=== PATIENT | female | born 1965 | race Two or more races ===

== ENCOUNTER 2017-03-13 14:56 | Emergency (ER) | payer OTHER ==
[2017-03-13 15:22] VITALS: BP 132/64; PULSE 83; TEMP 98.1; BMI 27.2
--- NOTE | 2017-03-13 15:28 | PDOC ---
History of Present Illness - General Chief Complaint: Psychiatric Stated Complaint: PANIC ATTACK Time Seen by Provider: 03/13/17 15:27 History Source: Patient Exam Limitations: No Limitations Past History - Past Medical History Allergies/Adverse Reactions: Allergies Allergy/AdvReac Type Severity Reaction Status Date / Time Fish Containing Products Allergy Rash Verified 03/13/17 15:19 No Known Drug Allergies Allergy Verified 03/13/17 15:19 Home Medications: Ambulatory Orders Aripiprazole [Abilify -] 5 mg PO HS 12/29/15 Diphenhydramine [Benadryl -] 50 mg PO HS 12/29/15 Divalproex Sodium [Depakote ER] 500 mg PO HS 12/29/15 Gabapentin [Neurontin -] 300 mg PO HS 12/29/15 Lidocaine 4% Topical [Xylocaine 4% Topical] 1 applic MM BID 12/29/15 Tramadol HCl 50 mg PO Q8H PRN #9 tablet MDD 4 04/16/16 Albuterol Sulfate Inhaler - [Ventolin HFA Inhaler -] 1 puff IH QID PRN #1 inhaler 04/29/16 Levofloxacin [Levaquin -] 500 mg PO DAILY #7 tablet 04/29/16 Montelukast Na [Singulair -] 10 mg PO HS #30 tablet 04/29/16 Valacyclovir HCl [Valtrex -] 500 mg PO BID #20 tablet 04/29/16 Aripiprazole [Abilify -] 5 mg PO HS #30 tablet 07/23/16 Divalproex [Depakote -] 500 mg PO HS #30 tablet.ec 07/23/16 Gabapentin [Neurontin -] 100 mg PO TID #90 capsule 07/23/16 Albuterol Sulfate Inhaler - [Ventolin HFA Inhaler -] 2 puff IH Q4H PRN #1 inhaler 07/25/16 Gabapentin [Neurontin -] 100 mg PO TID #90 capsule 07/25/16 Montelukast Na [Singulair -] 10 mg PO HS #30 tablet 07/25/16 Ranitidine [Zantac -] 150 mg PO BID #30 tablet 07/25/16 Guaifenesin [Robitussin] 10 ml PO QID PRN #100 ml 03/13/17 Anemia: No Asthma: Yes (albuterol) Cancer: No Cardiac Disorders: No CVA: No COPD: No CHF: No Dementia: No Diabetes: No GI Disorders: Yes (GERD) Disorders: No HTN: No Hypercholesterolemia: No Kidney Stones: No Liver Disease: No Psychiatric Problems: Yes (bipolar, manic) Suicide Attempt (Hx): Yes (many years ago CUT WRIST ) Seizures: No Thyroid Disease: Yes (never went for treatment) - Surgical History Abdominal Surgery: Yes (gastric sleeve 2013) Appendectomy: No Cardiac Surgery: No Cholecystectomy: No Gastric Stapling: Yes (bariatric sx) Lung Surgery: No Neurologic Surgery: No Orthopedic Surgery: Yes (right carpal tunnel 2011; right elbow 2011) - Reproductive History PID: No - Psycho/Social/Smoking Cessation Hx Anxiety: No Suicidal Ideation: No Smoking History: Current every day smoker Have you smoked in the past 12 months: Yes Number of Cigarettes Smoked Daily: 20 If you are a former smoker, when did you quit?: 2009 Cigars Per Day: 0 Information on smoking cessation initiated: No 'Breaking Loose' booklet given: 07/22/16 Hx Alcohol Use: No Drug/Substance Use Hx: No Substance Use Type: Alcohol, Cocaine, Opiates Hx Substance Use Treatment: Yes *Physical Exam - Vital Signs Last Vital Signs Temp Pulse Resp BP Pulse Ox 98.1 F 83 22 132/64 96 03/13/17 15:19 03/13/17 15:19 03/13/17 15:19 03/13/17 15:19 03/13/17 15:19 *DC/Admit/Observation/Transfer Diagnosis at time of Disposition: Anxiety, Cough in adult - Discharge Dispostion Disposition: HOME Condition at time of disposition: Stable - Prescriptions Prescriptions: Guaifenesin [Robitussin] 10 ml PO QID PRN #100 ml PRN Reason: Cough - Patient Instructions Printed Discharge Instructions: DI for Cough -- Adult, DI for Drug Abuse and Drug Addiction Additional Instructions: Please utilizes all resources in the community to avoid drug use and alcohol use. If you feel unsafe, severely depressed, or extremely violent please return to the ED or your nearest police department.
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
== END 2017-03-13 17:11 | disposition home or self-care (01) ==
LOC: JERFT 14:56
DX: F41.9 Anxiety disorder, unspecified (principal); R05 Cough; K21.9 Gastro-esophageal reflux disease without esophagitis; J45.909 Unspecified asthma, uncomplicated; F31.9 Bipolar disorder, unspecified; E07.9 Disorder of thyroid, unspecified; Z98.84 Bariatric surgery status; Z91.013 Allergy to seafood; Z91.5 Personal history of self-harm
CPT/HCPCS: 99281-25

== ENCOUNTER 2018-05-16 21:50 | Emergency (ER) | payer OTHER ==
[2018-05-16 21:53] VITALS: BP 160/96; PULSE 92; TEMP 98.4; BMI 29.2
--- NOTE | 2018-05-16 22:04 | PDOC ---
History of Present Illness - General Chief Complaint: Ear Problem Stated Complaint: FOREIGN BODY IN EAR Time Seen by Provider: 05/16/18 22:02 - History of Present Illness Initial Comments: 22-year-old female with a past medical history significant for bipolar and depression. She is on multiple medications presents to the emergency room for evaluation of bilateral ear pain 2 hours. She states she feels bugs in her ear. 05/16/18 22:02 Past History - Past Medical History Allergies/Adverse Reactions: Allergies Allergy/AdvReac Type Severity Reaction Status Date / Time Fish Containing Products Allergy Rash Verified 05/16/18 21:53 No Known Drug Allergies Allergy Verified 05/16/18 21:53 Home Medications: Ambulatory Orders Aripiprazole [Abilify -] 5 mg PO HS 12/29/15 Divalproex Sodium [Depakote ER] 500 mg PO HS 12/29/15 Gabapentin [Neurontin -] 300 mg PO HS 12/29/15 Valacyclovir HCl [Valtrex -] 500 mg PO BID #20 tablet 04/29/16 Aripiprazole [Abilify -] 5 mg PO HS #30 tablet 07/23/16 Divalproex [Depakote -] 500 mg PO HS #30 tablet.ec 07/23/16 Amoxicillin - [Amoxicillin 875mg Tablet -] 875 mg PO BID #20 tablet 05/16/18 Anemia: No Asthma: Yes (albuterol) Cancer: No Cardiac Disorders: No CVA: No COPD: No CHF: No Dementia: No Diabetes: No GI Disorders: Yes (GERD) Disorders: No HTN: No Hypercholesterolemia: No Kidney Stones: No Liver Disease: No Psychiatric Problems: Yes (bipolar, manic) Seizures: No Thyroid Disease: Yes (never went for treatment) - Surgical History Abdominal Surgery: Yes (gastric sleeve 2013) Appendectomy: No Cardiac Surgery: No Cholecystectomy: No Gastric Stapling: Yes (bariatric sx) Lung Surgery: No Neurologic Surgery: No Orthopedic Surgery: Yes (right carpal tunnel 2011; right elbow 2011) - Reproductive History PID: No - Suicide/Smoking/Psychosocial Hx Smoking History: Former smoker Have you smoked in the past 12 months: Yes Number of Cigarettes Smoked Daily: 20 If you are a former smoker, when did you quit?: 2009 Cigars Per Day: 0 Information on smoking cessation initiated: No 'Breaking Loose' booklet given: 07/22/16 Hx Alcohol Use: No Drug/Substance Use Hx: No Substance Use Type: Alcohol, Cocaine, Opiates Hx Substance Use Treatment: Yes Review of Systems - Review of Systems HEENTM: Yes: See HPI, Ear Pain All Other Systems: Reviewed and Negative *Physical Exam - Vital Signs Last Vital Signs Temp Pulse Resp BP Pulse Ox 98.4 F 92 H 18 160/96 99 05/16/18 21:51 05/16/18 21:51 05/16/18 21:51 05/16/18 21:51 05/16/18 21:51 - Physical Exam Comments: HEAD: NC/AT EYES: Conjuntiva clear Ears: Canals are clear without any of evidence of foreign body tympanic membranes bilaterally are erythemic and bulging NOSE: No d/c THROAT: Moist mucous membrances, oral pharanx clear, uvula midline NECK: Supple without adenopathy CARDIAC: S1 S2 LUNGS: CTA Full and Equal breath sounds ABDOMEN: Soft NT ND MS: Full ROM in all joints without edema NEUROLOGIC: No gross sensory or motor deficits, NVID SKIN: Normal color and temperature no lesions or rashes 05/16/18 22:03 Medical Decision Making - Medical Decision Making No foreign body possibly otitis media I will treat her with amoxicillin 05/16/18 22:03 *DC/Admit/Observation/Transfer Diagnosis at time of Disposition: Otitis media - Discharge Dispostion Disposition: HOME Condition at time of disposition: Stable Decision to Admit order: No - Prescriptions Prescriptions: Amoxicillin - [Amoxicillin 875mg Tablet -] 875 mg PO BID #20 tablet - Referrals Referrals: Iain Hawley MD [Staff Physician] - - Patient Instructions Printed Discharge Instructions: Middle Ear Infection Additional Instructions: Please take the antibiotics as directed he did take Tylenol and Motrin as needed for pain as directed return to the emergency room should symptoms worsen or go unresolved. Please follow-up with ENT in one to 2 days. - Post Discharge Activity
== END 2018-05-16 22:13 | disposition home or self-care (01) ==
LOC: JERFT 21:50
DX: H66.93 Otitis media, unspecified, bilateral (principal); J45.909 Unspecified asthma, uncomplicated; K21.9 Gastro-esophageal reflux disease without esophagitis; F31.9 Bipolar disorder, unspecified; Z98.84 Bariatric surgery status
CPT/HCPCS: 99281-25

== ENCOUNTER 2018-06-18 14:52 | Inpatient (IN) | payer OTHER ==
[2018-06-18 16:55] VITALS: BMI 27.4
--- NOTE | 2018-06-18 17:59 | HP ---
CIWA Score Nausea/Vomitin Muscle Tremors: None Anxiety: 4-Mod. Anxious/Guarded Agitation: 2 Paroxysmal Sweats: No Perspiration Orientation: 0-Oriented Tacttile Disturbances: 0-None Auditory Disturbances: 2-Mild Harshness/Frighten Visual Disturbances: 2-Mild Sensitivity Headache: 3-Moderate CIWA-Ar Total Score: 18 - Admission Criteria [facility]ASAS Guidelines: Admission for Medically Managed Detox: Requires at least one of the followin. CIWA greater than 12 2. Seizures within the past 24 hours 3. Delirium tremens within the past 24 hours 4. Hallucinations within the past 24 hours 5. Acute intervention needed for co occurring medical disorder 6. Acute intervention needed for co occurring psychiatric disorder 7. Severe withdrawal that cannot be handled at a lower level of care (continued vomiting, continued diarrhea, abnormal vital signs) requiring intravenous medication and/or fluids 8. Admission ROS [facility] Allergies/Adverse Reactions: Allergies Allergy/AdvReac Type Severity Reaction Status Date / Time Fish Containing Products Allergy Rash Verified 05/16/18 21:53 No Known Drug Allergies Allergy Verified 05/16/18 21:53 History of Present Illness: patient here requesting detox from ETOH use , reports 1 pint/day x 2 months , s/p relapse , prior sobriety x 5 years ,first age of use 13 , reports severe anxiety if not drinking, symptoms as above , + h/o seizure latest claims today before she drank a beer , reports drinking in the mornings to stop tremors , + blackouts , + falls , most recently in her home in the kitchen 1 week ago , denies injuries . utox + bernardo, + bup Boom 0.000 crack cocaine : 3 gr /day x 2 months relapse heroin : [facility] ) tobacco : 1 ppd since age 10 , requesting nrt w/ gum PMHX : asthma ( hospitalized , denies intubation , has nebulizer at home ) , CTS , sciatica, chronic LBP , left knee , old HZV on back chronic neuropathy , eczema , pshx : bariatric surgery , CHARMAINE & BSO 2/2 fibroids 4 years ago psych : manic , bipolar d/o meds : see list . prior visit at this facility " years ago " 3 children ages 34,30, 31 A & W Exam Limitations: No Limitations - Ebola screening Have you traveled outside of the country in the last 21 days: No Have you had contact with anyone from an Ebola affected area: No Have you been sick,other than usual withdrawal symptoms: No - Review of Systems Constitutional: See HPI EENT: reports: Other (glasses) Respiratory: reports: No Symptoms reported Cardiac: reports: No Symptoms Reported GI: reports: Nausea, Vomiting : reports: No Symptoms Reported Musculoskeletal: reports: Back Pain, Joint Pain, Muscle Pain Integumentary: reports: See HPI Neuro: reports: Headache Endocrine: reports: No Symptoms Reported Psychiatric: reports: Orientated x3, Agitated, Anxious Patient History - Patient Medical History Hx Anemia: No Hx Asthma: Yes Hx Chronic Obstructive Pulmonary Disease (COPD): No Hx Cancer: No Hx Cardiac Disorders: No Hx Congestive Heart Failure: No Hx Hypertension: No Hx Hypercholesterolemia: No Hx Pacemaker: No HX Cerebrovascular Accident: No Hx Seizures: No Hx Dementia: No Hx Diabetes: No Hx Gastrointestinal Disorders: Yes (GERD) Hx Liver Disease: No Hx Genitourinary Disorders: No Hx Sexually Transmitted Disorders: Yes (HERPES) Hx Renal Disease (ESRD): No Hx Thyroid Disease: Yes (never went for treatment) Hx Human Immunodeficiency Virus (HIV): No Hx Hepatitis C: Yes (treated years ago with interferon) Hx Depression: Yes (hospitalized 4 months ago [facility]) Hx Suicide Attempt: Yes (05/28 OD WITH PRESCRIBED PILLS) Hx Bipolar Disorder: Yes Hx Schizophrenia: No - Patient Surgical History Past Surgical History: Yes Hx Neurologic Surgery: No Hx Cataract Extraction: No Hx Cardiac Surgery: No Hx Lung Surgery: No Hx Breast Surgery: No Hx Breast Biopsy: Yes (RIGHT lumpectomy 2007) Hx Abdominal Surgery: Yes (gastric sleeve 2013) Hx Appendectomy: No Hx Cholecystectomy: No Hx Genitourinary Surgery: Yes (ovarians removed 2013) Hx Section: No (ectopic ) Hx Orthopedic Surgery: Yes (right carpal tunnel 2011; right elbow 2011) Hx Hysterectomy: Yes (2013) Other Surgical History: LUMBAR AND CERVICAL EPIDURAL Anesthesia Reaction: No - PPD History Date: 04/29/16 - Reproductive History Last Menstrual Period: 04/24/13 - Smoking Cessation Smoking history: Former smoker Have you smoked in the past 12 months: Yes Aproximately how many cigarettes per day: 20 If you are a former smoker, when did you quit?: 2009 Cigars Per Day: 0 Hx Chewing Tobacco Use: No Initiated information on smoking cessation: No - Substances Abused Alcohol Route: Oral Frequency: Daily Amount used: 1 PINT VODKA Age of first use: 13 Date of Last Use: 06/18/18 Cocaine Route: Smoking Frequency: Daily Amount used: 3 GRAMS Age of first use: 26 Date of Last Use: 06/18/18 Buprenorphine Route: Oral Frequency: Daily Amount used: 24MG Age of first use: 50 Date of Last Use: 06/17/18 Family Disease History - Family Disease History Family Disease History: Diabetes: Sister (psych problems), CA: Mother ( breast cancer), Other: Father (, alcohol), Sister Admission Physical Exam [facility] - Vital Signs Vital Signs: Vital Signs - 24 hr 06/18/18 16:51 Temperature 97.6 F Pulse Rate 93 H Respiratory 18 Rate Blood Pressure 96/65 - Physical General Appearance: Yes: Disheveled, Moderate Distress, Tremorous, Anxious HEENTM: Yes: EOMI, Hearing grossly Normal, Normal ENT Inspection, Other (many missing teeth , poor dentition) Respiratory: Yes: Chest Non-Tender, Lungs Clear, Normal Breath Sounds Neck: Yes: No masses,lesions,Nodules, Trachea in good position Breast: Yes: Breast Exam Deferred Cardiology: Yes: Regular Rhythm, Regular Rate, Tachycardia Abdominal: Yes: Normal Bowel Sounds, Non Tender Genitourinary: Yes: Within Normal Limits Back: Yes: Normal Inspection Musculoskeletal: Yes: Back pain, Joint Stiffness Extremities: Yes: Normal Capillary Refill, Normal Inspection Neurological: Yes: Fully Oriented, Motor Strength 5/5 Integumentary: Yes: Within Normal Limits - Diagnostic (1) Opioid dependence on agonist therapy Current Visit: Yes Status: Chronic (2) Alcohol dependence with uncomplicated withdrawal Current Visit: No Status: Acute (3) Asthma Current Visit: No Status: Chronic Qualifiers: Asthma severity: mild intermittent Asthma complication type: with status asthmaticus (4) Cocaine dependence Current Visit: No Status: Chronic Qualifiers: Substance use status: uncomplicated Qualified Code(s): F14.20 - Cocaine dependence, uncomplicated (5) Nicotine dependence Current Visit: No Status: Chronic Qualifiers: Nicotine product type: cigarettes Substance use status: uncomplicated Qualified Code(s): F17.210 - Nicotine dependence, cigarettes, uncomplicated [facility] Breath Alcohol Content Breath Alcohol Content: 0 Urine Pregancy Test - Result Urine Test Results: Negative- NO Line Present Urine Drug Screen - Results Urine Drug Screen Results: BERNARDO-Cocaine, BUP-Suboxone
[2018-06-18] MEDS ORDERED: MAGNESIUM CITRATE 300 ML BOTTLE PO PRN (18:02)
[2018-06-18] MEDS ORDERED: NICOTINE POLACRILEX 2 MG GUM BC PRN (18:02)
[2018-06-18] MEDS ORDERED: MENTHOL/PHENOL 1 EACH UD MM PRN (18:02)
[2018-06-18] MEDS ORDERED: P-EPHED 60MG/TRIPROLIDI 2.5MG TABLET PO PRN (18:02)
[2018-06-18] MEDS ORDERED: MAG HYDROX/AL HYDROX/SIMETH 30 ML UNIT-DOSE CUP PO PRN (18:02)
[2018-06-18] MEDS ORDERED: MAGNESIUM HYDROX 2400MG/30ML ORAL SUSPENSION 30 ML CUP PO PRN (18:02)
[2018-06-18] MEDS ORDERED: ACETAMINOPHEN 325 MG TABLET (FP) PO PRN (18:02)
[2018-06-18] MEDS ORDERED: guaiFENesin/D-METHORPHAN HB 10 ML UNIT-DOSE CUPS PO PRN (18:02)
[2018-06-18] MEDS ORDERED: AMMONIUM LACTATE 12% LOTION 225 GM BOTTLE TP PRN (18:05)
[2018-06-18] MEDS ORDERED: ALBUTEROL SO4 0.083% IH SOL 2.5 MG/3 ML VIAL.NEB. NEB PRN (18:06)
[2018-06-18] MEDS: chlordiazePOXIDE HCL 25 MG CAPSULE PO PRN (19:27)
[2018-06-18] MEDS: IBUPROFEN 400 MG TABLET (FP) PO PRN (20:20)
[2018-06-18] MEDS ORDERED: traZODone HCL 100 MG TABLET (FP) PO SCH (22:00)
[2018-06-18] MEDS ORDERED: MELATONIN 5 MG TABLETS PO PRN (22:00)
[2018-06-18] MEDS ORDERED: TRIMETHOBENZAMIDE HCL 200MG/2ML INJ IM PRN (22:04)
[2018-06-18] MEDS: chlordiazePOXIDE HCL 25 MG CAPSULE PO SCH (22:53)
[2018-06-18] MEDS: GABAPENTIN 300 MG CAPSULE (FP) PO SCH (22:53)
[2018-06-18] MEDS: THIAMINE HCL 100 MG TABLET (FP) PO SCH (22:54)
[2018-06-18] MEDS: valACYclovir HCL 500 MG TABLET (FP) PO SCH (22:54)
[2018-06-18 23:46] LABS: URINE APPEARANCE CLOUDY; URINE BILIRUBIN NEGATIVE (<2.0 mg/dL); URINE COLOR AMBER; URINE GLUCOSE (UA) NEGATIVE (NEGATIVE); URINE KETONE NEGATIVE (NEGATIVE); URINE LEUK ESTERASE 3+ (NEGATIVE); URINE NITRITE NEGATIVE (NEGATIVE); URINE PROTEIN 1+ (NEGATIVE); URINE UROBILINOGEN 4.0 E.U/dl mg/dL (0.2-1.0)
[2018-06-18 23:58] LABS: EPI CELLS MANY /HPF (FEW); URINE BACTERIA RARE /hpf (NONE SEEN); URINE MUCUS MANY
[2018-06-19] MEDS: chlordiazePOXIDE HCL 25 MG CAPSULE PO SCH ×4 (05:09→22:23)
[2018-06-19] MEDS ORDERED: ARIPiprazole 5 MG TABLET (FP) PO SCH (10:00)
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
[2018-06-19 10:11] LABS: HEMATOCRIT 41.6 % (32.4-45.2); HEMOGLOBIN 13.4 GM/dL (10.7-15.3); MCH 27.6 pg (25.7-33.7); MCHC 32.2 g/dl (32.0-36.0); MEAN CELL VOLUME 85.5 fl (80-96); MEAN PLT VOLUME 8.1 fl (7.5-11.1); PLATELET COUNT 240 K/MM3 (134-434); RBC 4.87 M/mm3 (3.60-5.2); RDW 13.8 % (11.6-15.6); WHITE BLOOD COUNT 6.9 K/mm3 (4.0-10.0)
--- NOTE | 2018-06-19 10:27 | PN ---
S CIWA - CIWA Score Nausea/Vomitin-Mild Nausea/No Vomiting Muscle Tremors: 4-Moderate,w/Arms Extend Anxiety: 3 Agitation: 3 Paroxysmal Sweats: 3 Orientation: 0-Oriented Tacttile Disturbances: 0-None Auditory Disturbances: 0-None Visual Disturbances: 0-None Headache: 0-None Present CIWA-Ar Total Score: 14 S Progress Note (SOAP) Subjective: sweats shakes body aches interrupted sleep nausea Objective: 06/19/18 10:34 Vital Signs Temperature 98.2 F 06/19/18 09:24 Pulse Rate 85 06/19/18 09:24 Respiratory Rate 18 06/19/18 09:24 Blood Pressure 106/63 06/19/18 09:24 O2 Sat by Pulse Oximetry (%) Laboratory Tests 06/18/18 06/19/18 23:10 07:00 WBC 6.9 RBC 4.87 Hgb 13.4 Hct 41.6 MCV 85.5 MCH 27.6 MCHC 32.2 RDW 13.8 Plt Count 240 D MPV 8.1 Urine Color Jazmine Urine Appearance Cloudy Urine pH 5.0 Ur Specific [place] 1.025 Urine Protein 1+ H Urine Glucose (UA) Negative Urine Ketones Negative Urine Blood Negative Urine Nitrite Negative Urine Bilirubin Negative Urine Urobilinogen 4.0 e.u/dl H Ur Leukocyte Esterase 3+ H D Urine WBC (Auto) 9 Urine RBC (Auto) 1 Ur Epithelial Cells Many Urine Bacteria Rare Urine Mucus Many repeat u/a rest of labs pending aaox3 ambulating no acute distress Assessment: 06/19/18 10:34 withdrawal sx Plan: continue detox increase fluids f/u pending labs
[2018-06-19] MEDS: BUPRENORPHINE HCL/NALOXONE 12 MG-3 MG SL FILM PACKET SL SCH (10:35)
[2018-06-19] MEDS: OXYBUTYNIN CHLORIDE 15 MG PO SCH (10:35)
[2018-06-19] MEDS: PRENATAL VITAMINS W/ FOLIC ACID TABLET (FP) PO SCH (10:35)
[2018-06-19] MEDS: valACYclovir HCL 500 MG TABLET (FP) PO SCH ×2 (10:36→22:23)
[2018-06-19] MEDS: IBUPROFEN 400 MG TABLET (FP) PO PRN (10:39)
[2018-06-19 11:17] LABS: ALBUMIN 3.4 g/dl (3.4-5.0); ALK PHOS 123 U/L (45-117); ANION GAP 9 MMOL/L (8-16); BILIRUBIN,TOTAL 0.3 mg/dL (0.2-1); BLOOD UREA NITROGEN 24 mg/dL (7-18); CALCIUM 8.7 mg/dL (8.5-10.1); CHLORIDE 102 mmol/L (98-107); CO2 29 mmol/L (21-32); CREATININE 0.9 mg/dL (0.55-1.3); GLUCOSE,RANDOM 76 mg/dL (74-106); POTASSIUM 3.9 mmol/L (3.5-5.1); SGOT/AST 31 U/L (15-37); SGPT/ALT 40 U/L (13-61); SODIUM 141 mmol/L (136-145)
[2018-06-19] MEDS: traZODone HCL 50 MG TABLET (FP) PO SCH (22:23)
[2018-06-19] MEDS: THIAMINE HCL 100 MG TABLET (FP) PO SCH (22:23)
[2018-06-19] MEDS: GABAPENTIN 300 MG CAPSULE (FP) PO SCH (22:23)
[2018-06-20] MEDS: chlordiazePOXIDE HCL 25 MG CAPSULE PO SCH ×3 (05:54→16:58)
[2018-06-20] MEDS: PRENATAL VITAMINS W/ FOLIC ACID TABLET (FP) PO SCH (09:39)
[2018-06-20] MEDS: OXYBUTYNIN CHLORIDE 15 MG PO SCH (09:39)
[2018-06-20] MEDS: ARIPiprazole 10 MG TABLET PO SCH (09:39)
[2018-06-20] MEDS: valACYclovir HCL 500 MG TABLET (FP) PO SCH ×2 (09:40→22:01)
[2018-06-20] MEDS: BUPRENORPHINE HCL/NALOXONE 12 MG-3 MG SL FILM PACKET SL SCH (09:40)
--- NOTE | 2018-06-20 10:09 | PN ---
S CIWA - CIWA Score Nausea/Vomitin-No Nausea/No Vomiting Muscle Tremors: 1-None Visible, but [place] Anxiety: 3 Agitation: 3 Paroxysmal Sweats: No Perspiration Orientation: 0-Oriented Tacttile Disturbances: 0-None Auditory Disturbances: 0-None Visual Disturbances: 0-None Headache: 0-None Present CIWA-Ar Total Score: 7 BHS Progress Note (SOAP) Subjective: PATIENT C/O BODY ACHES, ANXIETY AND INTERMITTENT RESTLESSNESS. Objective: 06/20/18 10:17 Vital Signs Temperature 97.7 F 06/20/18 09:41 Pulse Rate 79 06/20/18 09:41 Respiratory Rate 16 06/20/18 09:41 Blood Pressure 129/87 06/20/18 09:41 O2 Sat by Pulse Oximetry (%) Laboratory Tests 06/18/18 06/19/18 06/19/18 23:10 07:00 07:00 WBC 6.9 RBC 4.87 Hgb 13.4 Hct 41.6 MCV 85.5 MCH 27.6 MCHC 32.2 RDW 13.8 Plt Count 240 D MPV 8.1 Sodium 141 Potassium 3.9 Chloride 102 Carbon Dioxide 29 Anion Gap 9 BUN 24 H Creatinine 0.9 Creat Clearance w eGFR > 60 Random Glucose 76 Calcium 8.7 Total Bilirubin 0.3 AST 31 ALT 40 Alkaline Phosphatase 123 H Total Protein 7.0 Albumin 3.4 Urine Color Jazmine Urine Appearance Cloudy Urine pH 5.0 Ur Specific [place] 1.025 Urine Protein 1+ H Urine Glucose (UA) Negative Urine Ketones Negative Urine Blood Negative Urine Nitrite Negative Urine Bilirubin Negative Urine Urobilinogen 4.0 e.u/dl H Ur Leukocyte Esterase 3+ H D Urine WBC (Auto) 9 Urine RBC (Auto) 1 Ur Epithelial Cells Many Urine Bacteria Rare Urine Mucus Many RPR Titer 06/19/18 07:00 WBC RBC Hgb Hct MCV MCH MCHC RDW Plt Count MPV Sodium Potassium Chloride Carbon Dioxide Anion Gap BUN Creatinine Creat Clearance w eGFR Random Glucose Calcium Total Bilirubin AST ALT Alkaline Phosphatase Total Protein Albumin Urine Color Urine Appearance Urine pH Ur Specific [place] Urine Protein Urine Glucose (UA) Urine Ketones Urine Blood Urine Nitrite Urine Bilirubin Urine Urobilinogen Ur Leukocyte Esterase Urine WBC (Auto) Urine RBC (Auto) Ur Epithelial Cells Urine Bacteria Urine Mucus RPR Titer Nonreactive PE: SKIN WARM AND DRY ALERT AND ORIENTED X 3 EXT FULL ROM, AMB AD SERGEY, MILD TREMORS FELT ANXIOUS Assessment: 06/20/18 10:19 A/P WITHDRAWAL SX Plan: CONTINUE DETOX ENCOURAGE ORAL FLUIDS REPEAT UA CONTINUE TO MONITOR CLINICALLY
[2018-06-20] MEDS: chlordiazePOXIDE HCL 25 MG CAPSULE PO PRN (12:59)
[2018-06-20] MEDS: chlordiazePOXIDE 5 MG CAPSULE PO SCH (22:00)
[2018-06-20] MEDS: GABAPENTIN 300 MG CAPSULE (FP) PO SCH (22:00)
[2018-06-20] MEDS: THIAMINE HCL 100 MG TABLET (FP) PO SCH (22:00)
[2018-06-20] MEDS: traZODone HCL 50 MG TABLET (FP) PO SCH (22:00)
[2018-06-21 01:53] LABS: URINE APPEARANCE SLCLOUDY; URINE BILIRUBIN NEGATIVE (<2.0 mg/dL); URINE COLOR YELLOW; URINE GLUCOSE (UA) NEGATIVE (NEGATIVE); URINE KETONE TRACE (NEGATIVE); URINE LEUK ESTERASE 2+ (NEGATIVE); URINE NITRITE NEGATIVE (NEGATIVE); URINE PROTEIN NEGATIVE (NEGATIVE)
[2018-06-21 01:58] LABS: CALCIUM OXALATE CRYSTALS FEW /hpf (NONE SEEN); EPI CELLS FEW /HPF (FEW); URINE BACTERIA FEW /hpf (NONE SEEN); URINE MUCUS FEW
[2018-06-21] MEDS: chlordiazePOXIDE 5 MG CAPSULE PO SCH ×3 (06:41→17:10)
[2018-06-21] MEDS: IBUPROFEN 400 MG TABLET (FP) PO PRN (06:44)
[2018-06-21] MEDS: valACYclovir HCL 500 MG TABLET (FP) PO SCH ×2 (10:13→22:16)
[2018-06-21] MEDS: PRENATAL VITAMINS W/ FOLIC ACID TABLET (FP) PO SCH (10:13)
[2018-06-21] MEDS: BUPRENORPHINE HCL/NALOXONE 12 MG-3 MG SL FILM PACKET SL SCH (10:13)
[2018-06-21] MEDS: OXYBUTYNIN CHLORIDE 15 MG PO SCH (10:13)
[2018-06-21] MEDS: ARIPiprazole 10 MG TABLET PO SCH (10:13)
--- NOTE | 2018-06-21 11:06 | PN ---
BHS Progress Note (SOAP) Subjective: feeling better no tremor less sweat no gi distress sleep better at night Objective: 06/21/18 11:05 Vital Signs Temperature 98.1 F 06/21/18 09:28 Pulse Rate 79 06/21/18 09:28 Respiratory Rate 16 06/21/18 09:28 Blood Pressure 100/64 06/21/18 09:28 O2 Sat by Pulse Oximetry (%) Laboratory Last Values WBC 6.9 K/mm3 (4.0-10.0) 06/19/18 07:00 RBC 4.87 M/mm3 (3.60-5.2) 06/19/18 07:00 Hgb 13.4 GM/dL (10.7-15.3) 06/19/18 07:00 Hct 41.6 % (32.4-45.2) 06/19/18 07:00 MCV 85.5 fl (80-96) 06/19/18 07:00 MCH 27.6 pg (25.7-33.7) 06/19/18 07:00 MCHC 32.2 g/dl (32.0-36.0) 06/19/18 07:00 RDW 13.8 % (11.6-15.6) 06/19/18 07:00 Plt Count 240 K/MM3 (134-434) D 06/19/18 07:00 MPV 8.1 fl (7.5-11.1) 06/19/18 07:00 Sodium 141 mmol/L (136-145) 06/19/18 07:00 Potassium 3.9 mmol/L (3.5-5.1) 06/19/18 07:00 Chloride 102 mmol/L (98-107) 06/19/18 07:00 Carbon Dioxide 29 mmol/L (21-32) 06/19/18 07:00 Anion Gap 9 MMOL/L (8-16) 06/19/18 07:00 BUN 24 mg/dL (7-18) H 06/19/18 07:00 Creatinine 0.9 mg/dL (0.55-1.3) 06/19/18 07:00 Creat Clearance w eGFR > 60 (>60) 06/19/18 07:00 Random Glucose 76 mg/dL (74-106) 06/19/18 07:00 Calcium 8.7 mg/dL (8.5-10.1) 06/19/18 07:00 Total Bilirubin 0.3 mg/dL (0.2-1) 06/19/18 07:00 AST 31 U/L (15-37) 06/19/18 07:00 ALT 40 U/L (13-61) 06/19/18 07:00 Alkaline Phosphatase 123 U/L (45-117) H 06/19/18 07:00 Total Protein 7.0 g/dl (6.4-8.2) 06/19/18 07:00 Albumin 3.4 g/dl (3.4-5.0) 06/19/18 07:00 Urine Color Yellow 06/20/18 23: Urine Appearance Slcloudy 06/20/18 23:31 Urine pH 5.0 (5.0-8.0) 06/20/18 23:31 Ur Specific [place] 1.030 (1.010-1.035) 06/20/18 23:31 Urine Protein Negative (NEGATIVE) 06/20/18 23:31 Urine Glucose (UA) Negative (NEGATIVE) 06/20/18 23:31 Urine Ketones Trace (NEGATIVE) H 06/20/18 23:31 Urine Blood Negative (NEGATIVE) 06/20/18 23: Urine Nitrite Negative (NEGATIVE) 06/20/18 23: Urine Bilirubin Negative (<2.0 mg/dL) 06/20/18 23:31 Urine Urobilinogen 2.0 mg/dL (0.2-1.0) H 06/20/18 23:31 Ur Leukocyte Esterase 2+ (NEGATIVE) H 06/20/18 23:31 Urine WBC (Auto) 8 /hpf (3-5) 06/20/18 23:31 Urine RBC (Auto) 13 /hpf (0-3) 06/20/18 23:31 Ur Epithelial Cells Few /HPF (FEW) 06/20/18 23: Calcium Oxalate Crystal Few /hpf (NONE SEEN) 06/20/18 23: Urine Bacteria Few /hpf (NONE SEEN) 06/20/18 23: Urine Mucus Few 06/20/18 23:31 RPR Titer Nonreactive (NONREACTIVE) 06/19/18 07:00 lab noted Assessment: 06/21/18 11:06 mild withdrawal sx Plan: continue detox
[2018-06-21] MEDS: THIAMINE HCL 100 MG TABLET (FP) PO SCH (22:16)
[2018-06-21] MEDS: traZODone HCL 50 MG TABLET (FP) PO SCH (22:16)
[2018-06-21] MEDS: chlordiazePOXIDE HCL 10 MG CAPSULE PO SCH (22:16)
[2018-06-21] MEDS: GABAPENTIN 300 MG CAPSULE (FP) PO SCH (22:16)
[2018-06-22] MEDS: chlordiazePOXIDE HCL 10 MG CAPSULE PO SCH ×2 (05:52→10:13)
--- NOTE | 2018-06-22 08:39 | DS ---
[facility] Detox Discharge Summary Admission Date: 06/18/18 Discharge Date: 06/22/18 - History Present History: Alcohol Dependence Additional Comments: 52 years old female admitted on 06/18/18 for alcohol withdrawal sx completed alcohol detox regimen tolerated well denies alcohol withdrawal sx alert oriented x 3 no acute distress aftercare [facility] Pertinent Past History: encourage the patient return for rehab - Physical Exam Results Vital Signs: Vital Signs Temperature 97.9 F 06/22/18 07:19 Pulse Rate 74 06/22/18 07:19 Respiratory Rate 18 06/22/18 07:19 Blood Pressure 133/70 06/22/18 07:19 O2 Sat by Pulse Oximetry (%) Pertinent Admission Physical Exam Findings: alcohol withdrawal sx Vital Signs Temperature 96.8 F L 06/22/18 13:25 Pulse Rate 83 06/22/18 13:25 Respiratory Rate 18 06/22/18 13:25 Blood Pressure 125/67 06/22/18 13:25 O2 Sat by Pulse Oximetry (%) Laboratory Last Values WBC 6.9 K/mm3 (4.0-10.0) 06/19/18 07:00 RBC 4.87 M/mm3 (3.60-5.2) 06/19/18 07:00 Hgb 13.4 GM/dL (10.7-15.3) 06/19/18 07:00 Hct 41.6 % (32.4-45.2) 06/19/18 07:00 MCV 85.5 fl (80-96) 06/19/18 07:00 MCH 27.6 pg (25.7-33.7) 06/19/18 07:00 MCHC 32.2 g/dl (32.0-36.0) 06/19/18 07:00 RDW 13.8 % (11.6-15.6) 06/19/18 07:00 Plt Count 240 K/MM3 (134-434) D 06/19/18 07:00 MPV 8.1 fl (7.5-11.1) 06/19/18 07:00 Sodium 141 mmol/L (136-145) 06/19/18 07:00 Potassium 3.9 mmol/L (3.5-5.1) 06/19/18 07:00 Chloride 102 mmol/L (98-107) 06/19/18 07:00 Carbon Dioxide 29 mmol/L (21-32) 06/19/18 07:00 Anion Gap 9 MMOL/L (8-16) 06/19/18 07:00 BUN 24 mg/dL (7-18) H 06/19/18 07:00 Creatinine 0.9 mg/dL (0.55-1.3) 06/19/18 07:00 Creat Clearance w eGFR > 60 (>60) 06/19/18 07:00 Random Glucose 76 mg/dL (74-106) 06/19/18 07:00 Calcium 8.7 mg/dL (8.5-10.1) 06/19/18 07:00 Total Bilirubin 0.3 mg/dL (0.2-1) 06/19/18 07:00 AST 31 U/L (15-37) 06/19/18 07:00 ALT 40 U/L (13-61) 06/19/18 07:00 Alkaline Phosphatase 123 U/L (45-117) H 06/19/18 07:00 Total Protein 7.0 g/dl (6.4-8.2) 06/19/18 07:00 Albumin 3.4 g/dl (3.4-5.0) 06/19/18 07:00 Urine Color Yellow 06/20/18 23:31 Urine Appearance Slcloudy 06/20/18 23:31 Urine pH 5.0 (5.0-8.0) 06/20/18 23:31 Ur Specific [place] 1.030 (1.010-1.035) 06/20/18 23:31 Urine Protein Negative (NEGATIVE) 06/20/18 23:31 Urine Glucose (UA) Negative (NEGATIVE) 06/20/18 23:31 Urine Ketones Trace (NEGATIVE) H 06/20/18 23:31 Urine Blood Negative (NEGATIVE) 06/20/18 23:31 Urine Nitrite Negative (NEGATIVE) 06/20/18 23:31 Urine Bilirubin Negative (<2.0 mg/dL) 06/20/18 23:31 Urine Urobilinogen 2.0 mg/dL (0.2-1.0) H 06/20/18 23:31 Ur Leukocyte Esterase 2+ (NEGATIVE) H 06/20/18 23:31 Urine WBC (Auto) 8 /hpf (3-5) 06/20/18 23:31 Urine RBC (Auto) 13 /hpf (0-3) 06/20/18 23:31 Ur Epithelial Cells Few /HPF (FEW) 06/20/18 23:31 Calcium Oxalate Crystal Few /hpf (NONE SEEN) 06/20/18 23:31 Urine Bacteria Few /hpf (NONE SEEN) 06/20/18 23:31 Urine Mucus Few 06/20/18 23:31 RPR Titer Nonreactive (NONREACTIVE) 06/19/18 07:00 lab noted - Treatment Hospital Course: Detox Protocol Followed, Detoxed Safely, Responded well, Discharged Condition Good, Rehab Referral Accepted Patient has Accepted a Re[facility] Referral to: [facility] - Medication Discharge Medications: Ambulatory Orders Gabapentin [Neurontin -] 300 mg PO HS 12/29/15 Valacyclovir HCl [Valtrex -] 500 mg PO BID #20 tablet 04/29/16 Aripiprazole 20 mg PO DAILY 06/18/18 Oxybutynin Chloride [Ditropan Xl] 15 mg PO DAILY 06/18/18 traZODone HCL [Trazodone HCl] 100 mg PO HS 06/18/18 - Diagnosis (1) Alcohol dependence with uncomplicated withdrawal Status: Acute (2) Asthma Status: Chronic Qualifiers: Asthma severity: mild Asthma persistence: intermittent Asthma complication type: with status asthmaticus Qualified Code(s): J45.22 - Mild intermittent asthma with status asthmaticus (3) GERD (gastroesophageal reflux disease) Status: Chronic Qualifiers: Esophagitis presence: without esophagitis Qualified Code(s): K21.9 - Gastro -esophageal reflux disease without esophagitis (4) Nicotine dependence Status: Acute Qualifiers: Nicotine product type: cigarettes Substance use status: in withdrawal Qualified Code(s): F17.213 - Nicotine dependence, cigarettes, with withdrawal - AMA Did Patient Leave Against Medical Advice: No
[2018-06-22] MEDS: ARIPiprazole 10 MG TABLET PO SCH (10:12)
[2018-06-22] MEDS: PRENATAL VITAMINS W/ FOLIC ACID TABLET (FP) PO SCH (10:13)
[2018-06-22] MEDS: OXYBUTYNIN CHLORIDE 15 MG PO SCH (10:13)
[2018-06-22] MEDS: BUPRENORPHINE HCL/NALOXONE 12 MG-3 MG SL FILM PACKET SL SCH (10:13)
[2018-06-22] MEDS: valACYclovir HCL 500 MG TABLET (FP) PO SCH (10:13)
[2018-06-22 13:25] VITALS: BP 125/67; PULSE 83; TEMP 96.8
== END 2018-06-22 13:10 | disposition other institution (70) | DRG 773 ==
LOC: YASAS 14:52 → Y6N 18:29
PROC: HZ2ZZZZ Detoxification Services for Substance Abuse Treatment (ICD-10-PCS; principal; 2018-06-18)
DX: F10.230 Alcohol dependence with withdrawal, uncomplicated (principal); F14.20 Cocaine dependence, uncomplicated; F11.20 Opioid dependence, uncomplicated; F17.213 Nicotine dependence, cigarettes, with withdrawal; F41.9 Anxiety disorder, unspecified; F31.9 Bipolar disorder, unspecified; K21.9 Gastro-esophageal reflux disease without esophagitis; L30.9 Dermatitis, unspecified; B00.9 Herpesviral infection, unspecified; A60.00 Herpesviral infection of urogenital system, unspecified; R56.9 Unspecified convulsions; Z91.5 Personal history of self-harm
CPT/HCPCS: 36415; 80053; 81003; 81015; 85027; 86593

== ENCOUNTER 2018-06-22 13:30 | Inpatient (IN) | payer OTHER ==
--- NOTE | 2018-06-22 13:52 | HP ---
[facility] Rehab Assess/Revision - Admission History Admitted to Rehab from: April 6 [place] Date of Admission to Rehab: 06/22/18 - Findings Detox History & Physical reviewed: Yes Concur with findings: Yes Comments/Additional Findings: transferred from detox to rehab admission as per protocol Inpatient Rehab Admission - Initial Determination Are CD services needed?: Yes Free of communicable disease: Yes Not in need of hospitalization: Yes - Rehab Admission Criteria Previous failed treatment: Yes Poor recovery environment: Yes Comorbidities: Yes Lacks judgement: No Patient is meeting Inpatient Rehab admission criteria:: Yes
[2018-06-22] MEDS ORDERED: MENTHOL/PHENOL 1 EACH UD MM PRN (13:53)
[2018-06-22] MEDS ORDERED: P-EPHED 60MG/TRIPROLIDI 2.5MG TABLET PO PRN (13:53)
[2018-06-22] MEDS ORDERED: guaiFENesin/D-METHORPHAN HB 10 ML UNIT-DOSE CUPS PO PRN (13:53)
[2018-06-22] MEDS ORDERED: MAGNESIUM CITRATE 300 ML BOTTLE PO PRN (13:53)
[2018-06-22] MEDS ORDERED: NICOTINE 14 MG/24 HOURS TOPICAL PATCH TD PRN (13:53)
[2018-06-22] MEDS ORDERED: MAGNESIUM HYDROX 2400MG/30ML ORAL SUSPENSION 30 ML CUP PO PRN (13:53)
[2018-06-22] MEDS ORDERED: LOPERAMIDE HCL 2 MG CAPSULE PO PRN (13:53)
[2018-06-22] MEDS ORDERED: ACETAMINOPHEN 325 MG TABLET (FP) PO PRN (13:53)
--- NOTE | 2018-06-22 14:34 | HP ---
Psychiatrist Admission - Data Date of interview: 06/22/18 Admission source: [facility] Identifying data: This is the first admission to [address] [place] [address] for this 52 years old H mother of 3 grown children,resides with ,supported by him. Medical History: Significant for Low back pain,GERD,Herpes,Genital herpes. Psychiatric History: Report history of depressed mood,anxiety,drug,alcohol abuse for many years.She was dx with Bipolar disorder.No history of suicidal attempts.Patient sees psychiatrist at [facility].Current medications;Trazodone 200 mh po hs,Gabapentin 100 mg po tid, Physical/Sexual Abuse/Trauma History: Not willing to discuss. Vital Signs: Vital Signs - 24 hr 06/22/18 13:57 Temperature 98.5 F Pulse Rate 82 Respiratory 18 Rate Blood Pressure 109/76 Allergies/Adverse Reactions: Allergies Allergy/AdvReac Type Severity Reaction Status Date / Time Fish Containing Products Allergy Rash Verified 05/16/18 21:53 No Known Drug Allergies Allergy Verified 05/16/18 21:53 Concur with the findings of this exam: Yes - Substance Abuse/Tx History Hx Alcohol Use: Yes (reports drinking since young age) Hx Substance Use: Yes (reports heroin,cocaine /crack since young age) Substance Use Type: Alcohol, Cocaine, Opiates Hx Substance Use Treatment: Yes (reports 7 years of abstinence) Mental Status Exam - Mental Status Exam Alert and Oriented to: Time, Place, Person Cognitive Function: Grossly Intact Patient Appearance: Unkempt Mood: Sad Affect: Constricted Patient Behavior: Cooperative Speech Pattern: Clear Voice Loudness: Normal Thought Process: Goal Oriented Thought Disorder: Not Present Hallucinations: Denies Suicidal Ideation: Denies Homicidal Ideation: Denies Insight/Judgement: Fair Sleep: Fair Appetite: Good, Weight loss Muscle strength/Tone: Normal Gait/Station: Normal Psychiatric Findings - Problem List ([place] 1, 2,3) (1) Cannabis dependence Current Visit: Yes Status: Chronic (2) Encounter for monitoring Suboxone maintenance therapy Current Visit: Yes Status: Chronic Comment: 8MG/2MG PO BID LAST FILLED 07/05 X 30 DAYS SUPPLY (3) Opioid dependence Current Visit: Yes Status: Chronic (4) GERD (gastroesophageal reflux disease) Current Visit: Yes Status: Chronic Qualifiers: Esophagitis presence: without esophagitis Qualified Code(s): K21.9 - Gastro -esophageal reflux disease without esophagitis (5) Genital herpes Current Visit: Yes Status: Chronic Qualifiers: Herpes simplex infection site: unspecified Qualified Code(s): A60.00 - Herpesviral infection of urogenital system, unspecified (6) Herpes Current Visit: Yes Status: Chronic Comment: sacrum (7) Low back pain Current Visit: Yes Status: Chronic Qualifiers: Chronicity: chronic Back pain laterality: unspecified Sciatica presence: without sciatica Qualified Code(s): M54.5 - Low back pain; G89.29 - Other chronic pain (8) Opioid dependence on agonist therapy Current Visit: Yes Status: Chronic (9) Stroke Current Visit: Yes Status: Inactive Qualifiers: CVA mechanism: other Qualified Code(s): I63.89 - Other cerebral infarction Comment: left eye lid open 08/13 (10) Bipolar disorder Current Visit: Yes Status: Chronic Qualifiers: Current episode severity: unspecified Comment: P: 1) OPIATE DEP, SHE DOESNOT MEET CRITERIA FOR ADMISSION SHE IS CURRENTLY ON PAIN MANAGEMENT WITH RX FROM 04/23. hER UTOX DEMONSTRATES EXTREME POLYPHARM AND DUE TO MENTAL ILLNESS BELOW, SHE REPRESENTS A SAFETY RISK i RECOMMENDED SHE ENGAGE WITH HER PAIN PHYSICIAN TO WORK TOWARDS PSYCH EVAL AND ENAGEMENT 2) CHRONIC PAIN ON PAIN MNGMENT, LOW MOTIVATION TO DC PAIN MEDS WILL FU 05/22 WITH MD TO EVAL PLAN IN CONTEXT OF ONGOING ACTIVE ADDITION 3) BIPOLAR : DENIES sUICICALITY BUT NOT ENAGED IN CARE. EXTENSIVE ENCOURAGEMENT TO ENGAGE IN APPROPRIATE MH CARE. coNSIDER REFERRAL TO DR FOUNTAIN (11) Cocaine dependence Current Visit: Yes Status: Chronic Qualifiers: Substance use status: uncomplicated Qualified Code(s): F14.20 - Cocaine dependence, uncomplicated (12) Cyst of both knee joints Current Visit: Yes Status: Chronic Comment: scheduled for ultrasound (13) Herpes simplex virus (HSV) infection of buttock Current Visit: No Status: Chronic - Initial Treatment Plan Initial Treatment Plan: Trazodone 150 mg po hs,Abilify 10 mg po daily,Neurontin 300 mg po hs.Will monitor progress.
--- NOTE | 2018-06-22 19:36 | PN ---
S Progress Note Note: attempted to obtain more information from patient regarding Suboxone provider , patient drowsy , sleeping , easily awakened by verbal stimuli , annoyed with race and sports book writer about line of questioning , stated " then don't give me anything " . Will re-evaluate in the morning .
[2018-06-22] MEDS ORDERED: MELATONIN 5 MG TABLETS PO PRN (22:00)
[2018-06-22] MEDS: GABAPENTIN 300 MG CAPSULE (FP) PO SCH (23:19)
[2018-06-22] MEDS: THIAMINE HCL 100 MG TABLET (FP) PO SCH (23:19)
[2018-06-22] MEDS: traZODone HCL 50 MG TABLET (FP) PO SCH (23:19)
[2018-06-22] MEDS: valACYclovir HCL 500 MG TABLET (FP) PO SCH (23:19)
[2018-06-23] MEDS: MAG HYDROX/AL HYDROX/SIMETH 30 ML UNIT-DOSE CUP PO PRN (07:16)
[2018-06-23] MEDS: OXYBUTYNIN CHLORIDE 15 MG PO SCH (10:40)
[2018-06-23] MEDS: PRENATAL VITAMINS W/ FOLIC ACID TABLET (FP) PO SCH (10:40)
[2018-06-23] MEDS: ARIPiprazole 10 MG TABLET PO SCH (10:40)
[2018-06-23] MEDS: valACYclovir HCL 500 MG TABLET (FP) PO SCH ×2 (10:40→21:26)
[2018-06-23] MEDS ORDERED: PT OWN MED DRAWER 7, Y5N ONE (11:00)
[2018-06-23] MEDS ORDERED: BUPRENORPHINE HCL/NALOXONE 12 MG-3 MG SL FILM PACKET SL ONE (12:00)
[2018-06-23] MEDS: GABAPENTIN 300 MG CAPSULE (FP) PO SCH (21:26)
[2018-06-23] MEDS: traZODone HCL 50 MG TABLET (FP) PO SCH (21:26)
[2018-06-23] MEDS: THIAMINE HCL 100 MG TABLET (FP) PO SCH (21:27)
[2018-06-24] MEDS ORDERED: BUPRENORPHINE/NALOXONE 2 MG/0.5 MG FILM PACKET SL SCH (06:00)
[2018-06-24] MEDS: BUPRENORPHINE HCL/NALOXONE 12 MG-3 MG SL FILM PACKET SL SCH (06:01)
[2018-06-24] MEDS ORDERED: BUPRENORPHINE/NALOXONE 8 MG/2 MG FILM PACKET SL SCH (10:00)
[2018-06-24] MEDS: OXYBUTYNIN CHLORIDE 15 MG PO SCH (10:01)
[2018-06-24] MEDS: ARIPiprazole 10 MG TABLET PO SCH (10:01)
[2018-06-24] MEDS: PRENATAL VITAMINS W/ FOLIC ACID TABLET (FP) PO SCH (10:01)
[2018-06-24] MEDS: valACYclovir HCL 500 MG TABLET (FP) PO SCH ×2 (10:01→21:16)
[2018-06-24] MEDS ORDERED: PT OWN MED DRAWER 7, Y5N ONE ×2 (12:07→19:59)
[2018-06-24] MEDS: MAG HYDROX/AL HYDROX/SIMETH 30 ML UNIT-DOSE CUP PO PRN (12:29)
[2018-06-24] MEDS: IBUPROFEN 400 MG TABLET (FP) PO PRN ×2 (14:21→19:55)
[2018-06-24] MEDS: NICOTINE POLACRILEX 2 MG GUM BUC PRN (17:09)
[2018-06-24] MEDS: traZODone HCL 50 MG TABLET (FP) PO SCH (21:15)
[2018-06-24] MEDS: THIAMINE HCL 100 MG TABLET (FP) PO SCH (21:15)
[2018-06-24] MEDS: GABAPENTIN 300 MG CAPSULE (FP) PO SCH (21:16)
[2018-06-25] MEDS: BUPRENORPHINE HCL/NALOXONE 12 MG-3 MG SL FILM PACKET SL SCH (06:22)
[2018-06-25] MEDS ORDERED: ALBUTEROL SO4 8 GM HFA INHALER IH PRN (08:20)
[2018-06-25] MEDS ORDERED: ALBUTEROL SO4 0.083% IH SOL 2.5 MG/3 ML VIAL.NEB. NEB PRN (08:21)
[2018-06-25] MEDS ORDERED: ALBUTEROL SO4 8 GM HFA INHALER IH ONE (08:24)
[2018-06-25] MEDS ORDERED: PT OWN MED DRAWER 7, Y5N ONE ×3 (09:05→09:47)
--- NOTE | 2018-06-25 09:56 | PN ---
Psychiatric Progress Note Vital Signs: Vital Signs Period Temp Pulse Resp BP Sys/[place] Pulse Ox Last 24 Hr 97.8 F 73 18-20 106/71 Date of Session: 06/25/18 Chief Complaint:: I feel very anxious and have difficulty sleeping HPI: Patient addressing Alcohol, Cocaine Dependence comorbid with Opioid Dependence on Agonist Therapy, Nicotine Dependence, Bipolar Disorder ROS: GERD, LBP, H/O CVA, Genital Herpes Current Medications: Active Medications Generic Name Dose Route Start Last Admin Trade Name Freq PRN Reason Stop Dose Admin Acetaminophen 650 mg 06/22/18 13:53 Tylenol - PO Q4H PRN FEVER Al Hydroxide/Mg Hydroxide 30 ml 06/22/18 13:53 06/24/18 12:29 Mylanta Oral Suspension - PO 30 ml Q6H PRN Administration DYSPEPSIA Albuterol Sulfate 2 puff 06/25/18 08:20 06/25/18 08:25 Ventolin Hfa Inhaler - IH 2 inh Q4H PRN Administration SHORT OF BREATH/WHEEZING Albuterol Sulfate 1 amp 06/25/18 08:21 Ventolin 0.083% Nebulizer Soln - NEB Q6H PRN SHORT OF BREATH/WHEEZING Aripiprazole 10 mg 06/23/18 10:00 06/24/18 10:01 Abilify PO 10 mg DAILY ELIZABETH Administration Buprenorphine/Naloxone 1 each 06/24/18 06:00 06/25/18 06:22 Suboxone 12 Mg-3 Mg Sl Film SL 07/01/18 05:59 1 each DAILY@0600 ELIZABETH Administration Eucalyptus/Menthol/Phenol/Sorbitol 1 each 06/22/18 13:53 Cepastat Lozenge - MM Q4H PRN SORE THROAT Gabapentin 300 mg 06/25/18 14:00 Neurontin - PO TID ELIZABETH Guaifenesin 10 ml 06/22/18 13:53 Robitussin Dm - PO Q6H PRN COUGH Hydroxyzine Pamoate 50 mg 06/25/18 09:42 Vistaril - PO Q4H PRN ANXIETY Ibuprofen 400 mg 06/22/18 13:53 06/24/18 19:55 Motrin - PO 400 mg Q6H PRN Administration Pain Level 4-6 Loperamide HCl 4 mg 06/22/18 13:53 Imodium - PO Q6H PRN DIARRHEA Magnesium Citrate 300 ml 06/22/18 13:53 Citroma - PO Q48H PRN CONSTIPATION Magnesium Hydroxide 30 ml 06/22/18 13:53 Milk Of Magnesia - PO DAILY PRN CONSTIPATION Melatonin 5 mg 06/22/18 22:00 Melatonin PO HS PRN INSOMNIA Nicotine 14 mg 06/22/18 13:53 Nicoderm Patch - TD DAILY PRN WITHDRAWAL(CONT SUBST) Nicotine Polacrilex 2 mg 06/22/18 13:53 06/24/18 17:09 Nicorette Gum - BUC 2 mg Q2H PRN Administration NICOTINE REPLACEMENT RX Non-Formulary Medication 15 mg 06/23/18 10:00 06/24/18 10:01 Oxybutynin Chloride [Ditropan Xl] PO 15 mg DAILY ELIZABETH Administration Multivit/Folic Acid/Iron 1 tab 06/23/18 10:00 06/24/18 10:01 Vitamins (Sjr) - PO 1 tab DAILY ELIZABETH Administration Pseudoephedrine/Triprolidine 1 combo 06/22/18 13:53 Actifed - PO TID PRN NASAL CONGESTION Thiamine HCl 100 mg 06/22/18 22:00 06/24/18 21:15 Vitamin B1 - PO 100 mg HS ELIZABETH Administration Trazodone HCl 200 mg 06/25/18 22:00 Desyrel - PO HS ELIZABETH Valacyclovir HCl 500 mg 06/22/18 22:00 06/24/18 21:16 Valtrex - PO 06/29/18 21:59 500 mg BID ELIZABETH Administration Medication(s) Change(s): 1) D/C Trazadone & Gabapentin as currently ordered. 2 ) Start Trazadone 200 mg po HS, Gabapentin 300 mg po TID and Vistaril 50 mg po Q 4hrs prn for anxiety Current Side Effect: No Lab tests ordered: Yes Lab tests reviewed: Yes Provider note:: Patient reports feeling very anxious and experiences difficulty to sleep despite taking Trazadone 150 mg po HS and Gabapentin 300 mg po HS. Requests that Trazadone dosage be increased to 200 mg po HS as she was being prescribed. Discussed with patient about increasing Trazadone to 200 mg po HS, Gabapentin 300 mg po TID and starting Vistarip 50 mg po Q 4hrs prn for anxiety Mental Status Exam - Mental Status Exam Alert and Oriented to: Time, Place, Person Cognitive Function: Fair Patient Appearance: Well Groomed Mood: Anxious Affect: Appropriate Patient Behavior: Cooperative Speech Pattern: Clear Voice Loudness: Normal Thought Process: Intact, Goal Oriented Thought Disorder: Not Present Hallucinations: Denies Suicidal Ideation: Denies Homicidal Ideation: Denies Insight/Judgement: Fair Sleep: Poorly Appetite: Good Muscle strength/Tone: Normal Gait/Station: Normal Psychiatric Treatment Plan - Problem List (1) Alcohol dependence Current Visit: Yes (2) Cocaine dependence Current Visit: Yes Qualifiers: Substance use status: uncomplicated Qualified Code(s): F14.20 - Cocaine dependence, uncomplicated (3) Opioid dependence on agonist therapy Current Visit: Yes (4) Bipolar disorder Current Visit: Yes Qualifiers: Current episode severity: unspecified Comment: P: 1) OPIATE DEP, SHE DOESNOT MEET CRITERIA FOR ADMISSION SHE IS CURRENTLY ON PAIN MANAGEMENT WITH RX FROM 04/23. hER UTOX DEMONSTRATES EXTREME POLYPHARM AND DUE TO MENTAL ILLNESS BELOW, SHE REPRESENTS A SAFETY RISK i RECOMMENDED SHE ENGAGE WITH HER PAIN PHYSICIAN TO WORK TOWARDS PSYCH EVAL AND ENAGEMENT 2) CHRONIC PAIN ON PAIN MNGMENT, LOW MOTIVATION TO DC PAIN MEDS WILL FU 05/22 WITH MD TO EVAL PLAN IN CONTEXT OF ONGOING ACTIVE ADDITION 3) BIPOLAR : DENIES sUICICALITY BUT NOT ENAGED IN CARE. EXTENSIVE ENCOURAGEMENT TO ENGAGE IN APPROPRIATE MH CARE. coNSIDER REFERRAL TO DR FOUNTAIN (5) Genital herpes Current Visit: Yes Qualifiers: Herpes simplex infection site: unspecified Qualified Code(s): A60.00 - Herpesviral infection of urogenital system, unspecified (6) Low back pain Current Visit: Yes Qualifiers: Chronicity: chronic Back pain laterality: unspecified Sciatica presence: without sciatica Qualified Code(s): M54.5 - Low back pain; G89.29 - Other chronic pain (7) GERD (gastroesophageal reflux disease) Current Visit: Yes Qualifiers: Esophagitis presence: without esophagitis Qualified Code(s): K21.9 - Gastro -esophageal reflux disease without esophagitis Initial treatment plan: 1) Discontinue Gabapentin and Trazadone as currently ordered. 2) Start Trazadone 200 mg po HDS, Gabapentin 300 mg po TID and Vistaril 50 mg po Q 4hrs prn for anxiety. 3) Monitor progress
[2018-06-25] MEDS: valACYclovir HCL 500 MG TABLET (FP) PO SCH ×2 (10:09→21:19)
[2018-06-25] MEDS: ARIPiprazole 10 MG TABLET PO SCH (10:09)
[2018-06-25] MEDS: PRENATAL VITAMINS W/ FOLIC ACID TABLET (FP) PO SCH (10:09)
[2018-06-25] MEDS: IBUPROFEN 400 MG TABLET (FP) PO PRN (10:10)
[2018-06-25] MEDS: OXYBUTYNIN CHLORIDE 15 MG PO SCH (10:10)
[2018-06-25] MEDS: hydrOXYzine PAMOATE 50 MG CAPSULE (FP) PO PRN (10:12)
[2018-06-25] MEDS: GABAPENTIN 300 MG CAPSULE (FP) PO SCH ×2 (14:48→21:19)
[2018-06-25] MEDS: THIAMINE HCL 100 MG TABLET (FP) PO SCH (21:19)
[2018-06-25] MEDS: NICOTINE POLACRILEX 2 MG GUM BUC PRN (21:23)
[2018-06-25] MEDS ORDERED: traZODone HCL 100 MG TABLET (FP) PO SCH (22:00)
[2018-06-26] MEDS: hydrOXYzine PAMOATE 50 MG CAPSULE (FP) PO PRN ×2 (02:43→09:07)
[2018-06-26] MEDS: IBUPROFEN 400 MG TABLET (FP) PO PRN (02:43)
[2018-06-26] MEDS: GABAPENTIN 300 MG CAPSULE (FP) PO SCH (06:20)
[2018-06-26] MEDS: BUPRENORPHINE HCL/NALOXONE 12 MG-3 MG SL FILM PACKET SL SCH (06:21)
--- NOTE | 2018-06-26 06:45 | PN ---
Psychiatric Progress Note Vital Signs: Vital Signs Period Temp Pulse Resp BP Sys/Dumont Pulse Ox Last 24 Hr 97.8 F 73 18-20 106/71 Date of Session: 06/26/18 Chief Complaint:: Discharge Note HPI: Patient addressing Alcohol, Cocaine Dependence comorbid with Opioid Dependence on Agonist Therapy, Nicotine Dependence, Bipolar Disorder ROS: GERD, LBP, H/O CVA, Genital Herpes Current Medications: Active Medications Generic Name Dose Route Start Last Admin Trade Name Freq PRN Reason Stop Dose Admin Acetaminophen 650 mg 06/22/18 13:53 Tylenol - PO Q4H PRN FEVER Al Hydroxide/Mg Hydroxide 30 ml 06/22/18 13:53 06/24/18 12:29 Mylanta Oral Suspension - PO 30 ml Q6H PRN Administration DYSPEPSIA Albuterol Sulfate 2 puff 06/25/18 08:20 06/25/18 08:25 Ventolin Hfa Inhaler - IH 2 inh Q4H PRN Administration SHORT OF BREATH/WHEEZING Albuterol Sulfate 1 amp 06/25/18 08:21 Ventolin 0.083% Nebulizer Soln - NEB Q6H PRN SHORT OF BREATH/WHEEZING Aripiprazole 10 mg 06/23/18 10:00 06/25/18 10:09 Abilify PO 10 mg DAILY ELIZABETH Administration Buprenorphine/Naloxone 1 each 06/24/18 06:00 06/26/18 06:21 Suboxone 12 Mg-3 Mg Sl Film SL 07/01/18 05:59 1 each DAILY@0600 ELIZABETH Administration Eucalyptus/Menthol/Phenol/Sorbitol 1 each 06/22/18 13:53 Cepastat Lozenge - MM Q4H PRN SORE THROAT Gabapentin 300 mg 06/25/18 14:00 06/26/18 06:20 Neurontin - PO 300 mg TID ELIZABETH Administration Guaifenesin 10 ml 06/22/18 13:53 Robitussin Dm - PO Q6H PRN COUGH Hydroxyzine Pamoate 50 mg 06/25/18 09:42 06/26/18 02:43 Vistaril - PO 50 mg Q4H PRN Administration ANXIETY Ibuprofen 400 mg 06/22/18 13:53 06/26/18 02:43 Motrin - PO 400 mg Q6H PRN Administration Pain Level 4-6 Loperamide HCl 4 mg 06/22/18 13:53 Imodium - PO Q6H PRN DIARRHEA Magnesium Citrate 300 ml 06/22/18 13:53 Citroma - PO Q48H PRN CONSTIPATION Magnesium Hydroxide 30 ml 06/22/18 13:53 Milk Of Magnesia - PO DAILY PRN CONSTIPATION Melatonin 5 mg 06/22/18 22:00 Melatonin PO HS PRN INSOMNIA Nicotine 14 mg 06/22/18 13:53 Nicoderm Patch - TD DAILY PRN WITHDRAWAL(CONT SUBST) Nicotine Polacrilex 2 mg 06/22/18 13:53 06/25/18 21:23 Nicorette Gum - BUC 2 mg Q2H PRN Administration NICOTINE REPLACEMENT RX Non-Formulary Medication 15 mg 06/23/18 10:00 06/25/18 10:10 Oxybutynin Chloride [Ditropan Xl] PO 15 mg DAILY ELIZABETH Administration Multivit/Folic Acid/Iron 1 tab 06/23/18 10:00 06/25/18 10:09 Vitamins (Sjr) - PO 1 tab DAILY ELIZABETH Administration Pseudoephedrine/Triprolidine 1 combo 06/22/18 13:53 Actifed - PO TID PRN NASAL CONGESTION Thiamine HCl 100 mg 06/22/18 22:00 06/25/18 21:19 Vitamin B1 - PO 100 mg HS ELIZABETH Administration Trazodone HCl 200 mg 06/25/18 22:00 06/25/18 21:20 Desyrel - PO 200 mg HS ELIZABETH Administration Valacyclovir HCl 500 mg 06/22/18 22:00 06/25/18 21:19 Valtrex - PO 06/29/18 21:59 500 mg BID ELIZABETH Administration Current Side Effect: No Lab tests ordered: Yes Lab tests reviewed: Yes Provider note:: Patient has completed this program today. She has partially met her treatment goals and will continue to address her issues at outpatient treatment at [facility] at [address] [place] [address]. Told proposal lead writer that from her participation in this program, she has learned he importance of adherence to her outpatient program in order to maintain abstinence. She responded well to Abilify 10 mg po daily, Trazadone 200 mg po HS and Gabapentin 300 mg po TID. Scriptsfor 30 days supply of theses medications are electronically transmitted to [facility] at [address] [place] [address]. She is stable for discharge today Total face to face time:: 35 Mental Status Exam - Mental Status Exam Alert and Oriented to: Time, Place, Person Cognitive Function: Fair Patient Appearance: Well Groomed Mood: Hopeful, Euthymic Affect: Appropriate Patient Behavior: Cooperative Speech Pattern: Clear Voice Loudness: Normal Thought Process: Intact, Goal Oriented Thought Disorder: Not Present Hallucinations: Denies Suicidal Ideation: Denies Homicidal Ideation: Denies Insight/Judgement: Fair Sleep: Fair Appetite: Good Muscle strength/Tone: Normal Gait/Station: Normal Psychiatric Treatment Plan - Problem List (1) Alcohol dependence Current Visit: Yes (2) Cocaine dependence Current Visit: Yes Qualifiers: Substance use status: uncomplicated Qualified Code(s): F14.20 - Cocaine dependence, uncomplicated (3) Opioid dependence on agonist therapy Current Visit: Yes (4) Bipolar disorder Current Visit: Yes Qualifiers: Current episode severity: unspecified Comment: P: 1) OPIATE DEP, SHE DOESNOT MEET CRITERIA FOR ADMISSION SHE IS CURRENTLY ON PAIN MANAGEMENT WITH RX FROM 04/23. hER UTOX DEMONSTRATES EXTREME POLYPHARM AND DUE TO MENTAL ILLNESS BELOW, SHE REPRESENTS A SAFETY RISK i RECOMMENDED SHE ENGAGE WITH HER PAIN PHYSICIAN TO WORK TOWARDS PSYCH EVAL AND ENAGEMENT 2) CHRONIC PAIN ON PAIN MNGMENT, LOW MOTIVATION TO DC PAIN MEDS WILL FU 05/22 WITH MD TO EVAL PLAN IN CONTEXT OF ONGOING ACTIVE ADDITION 3) BIPOLAR : DENIES sUICICALITY BUT NOT ENAGED IN CARE. EXTENSIVE ENCOURAGEMENT TO ENGAGE IN APPROPRIATE MH CARE. coNSIDER REFERRAL TO DR FOUNTAIN (5) Genital herpes Current Visit: Yes Qualifiers: Herpes simplex infection site: unspecified Qualified Code(s): A60.00 - Herpesviral infection of urogenital system, unspecified (6) Low back pain Current Visit: Yes Qualifiers: Chronicity: chronic Back pain laterality: unspecified Sciatica presence: without sciatica Qualified Code(s): M54.5 - Low back pain; G89.29 - Other chronic pain (7) GERD (gastroesophageal reflux disease) Current Visit: Yes Qualifiers: Esophagitis presence: without esophagitis Qualified Code(s): K21.9 - Gastro -esophageal reflux disease without esophagitis Initial treatment plan: Patient is discharged today and referred to [facility] for outpatient treatment
[2018-06-26 06:58] VITALS: BP 114/75; PULSE 84; TEMP 98.2
[2018-06-26] MEDS: PRENATAL VITAMINS W/ FOLIC ACID TABLET (FP) PO SCH (09:04)
[2018-06-26] MEDS: OXYBUTYNIN CHLORIDE 15 MG PO SCH (09:04)
[2018-06-26] MEDS: valACYclovir HCL 500 MG TABLET (FP) PO SCH (09:04)
[2018-06-26] MEDS: ARIPiprazole 10 MG TABLET PO SCH (09:04)
[2018-06-26] MEDS ORDERED: PT OWN MED DRAWER 7, Y5N ONE (09:04)
[2018-06-26] MEDS: NICOTINE POLACRILEX 2 MG GUM BUC PRN (09:06)
--- NOTE | 2018-06-26 10:24 | PN ---
[facility] Progress Note Note: PT DISCHARGING TODAY. ALERT O X 3. NAD. I SPOKE TO DR. MATTHEW AT THE [facility] RE:PT'S SUBOXONE TREATMENT. PT HAS NOT BEEN TO THE CLINIC SINCE 2017 PER [facility] DOCTOR. PT NOW CLAIMS SHE WAS SICK AT HOME AND BUYYING IT ON THE STREET BEFORE COMING TO DETOX. PT HAS AN APPOINTMENT TO FOLLOW UP WITH DR CONNELLY AT 1:00 P.M TODAY FOR RE-EVALUATION OF HER SUBOXONE TREATMENT. PT WAS WITH THIS UNDERWRITING ASSISTANT DURING THIS DISCUSSION AND LORA VERBALIZED UNDERSTANDING. PT HAS PHONE 3 AND APPOINTMENT TIME INFORMATION WITH HER AND WILL GO FOR FOLLOW UP IMMEDIATELY AFTER DISCHARGE FROM HERE TODAY Vital Signs 06/26/18 06/26/18 03:30 06:57 Temperature 98.2 F Pulse Rate 84 Respiratory 20 18 Rate Blood Pressure 114/75 CLAUDINE:FOLLOW UP WITH ABOVE APPOINTMENT AND YOUR MEDICAL/PSYCH MDs..
== END 2018-06-26 10:25 | disposition home or self-care (01) | DRG 772 ==
LOC: YASAS 13:30 → Y3W 13:32
PROVIDERS: ADMIT Psychiatry & Neurology Psychiatry; ATTEND Psychiatry & Neurology Psychiatry
PROC: HZ42ZZZ Group Counseling for Substance Abuse Treatment, Cognitive-Behavioral (ICD-10-PCS; principal; 2018-06-22)
DX: F10.230 Alcohol dependence with withdrawal, uncomplicated (principal); F11.20 Opioid dependence, uncomplicated; F14.20 Cocaine dependence, uncomplicated; F12.20 Cannabis dependence, uncomplicated; F31.9 Bipolar disorder, unspecified; A60.00 Herpesviral infection of urogenital system, unspecified; M54.5 Low back pain; G89.29 Other chronic pain; K21.9 Gastro-esophageal reflux disease without esophagitis; Z86.73 Personal history of transient ischemic attack (TIA), and cerebral infarction without residual deficits

== ENCOUNTER 2018-09-01 18:16 | Inpatient (IN) | payer OTHER ==
[2018-09-01 19:32] VITALS: BMI 30.3
--- NOTE | 2018-09-01 21:31 | HP ---
COWS - Scale Resting Pulse: 1= [place] 81-100 Sweatin= Chills/Flushing Restless Observation: 5= Unable to Sit Still Pupil Size: 0= Normal to Room Light Bone or Joint Aches: 4=Acute Joint/Muscle Pain Runny Nose/ Eye Tearin= Runny Nose/Eyes GI Upset > 30mins: 2= Nausea/Diarrhea Tremor Observation: 4= Gross Tremor/Twitching Yawning Observation: 0= None Anxiety or Irritability: 2=Irritable/Anxious Goose Flesh Skin: 0=Smooth Skin COWS Score: 21 CIWA Score Nausea/Vomitin-Mild Nausea/No Vomiting Muscle Tremors: 4-Moderate,w/Arms Extend Anxiety: 4-Mod. Anxious/Guarded Agitation: 4-Moderately Restless Paroxysmal Sweats: 3 Orientation: 1-Uncertain about Date Tacttile Disturbances: 2-Mild Itch/Numbness/Burn Auditory Disturbances: 0-None Visual Disturbances: 4-Moderate Hallucinations Headache: 1-Very Mild CIWA-Ar Total Score: 24 - Admission Criteria OASAS Guidelines: Admission for Medically Managed Detox: Requires at least one of the followin. CIWA greater than 12 2. Seizures within the past 24 hours 3. Delirium tremens within the past 24 hours 4. Hallucinations within the past 24 hours 5. Acute intervention needed for co occurring medical disorder 6. Acute intervention needed for co occurring psychiatric disorder 7. Severe withdrawal that cannot be handled at a lower level of care (continued vomiting, continued diarrhea, abnormal vital signs) requiring intravenous medication and/or fluids 8. Patient presents the following: CIWA greater than 12 Admission Criteria Met: Admission criteria met Admission ROS [facility] Chief Complaint: C/O WORSENING WITHDRAWAL SX'S. SEEKING DETOX TXMENT. Allergies/Adverse Reactions: Allergies Allergy/AdvReac Type Severity Reaction Status Date / Time Fish Containing Products Allergy Rash Verified 05/16/18 21:53 No Known Drug Allergies Allergy Verified 05/16/18 21:53 History of Present Illness: 53 Y.O. FEMALE WITH OPIOID AND ALCOHOL DEPENDENCE HERE FOR DETOX. CLIENT PRESENTS WITH C/O WITHDRAWAL SX'S COWS 21/CIWA 24. SHE IS KNOWN TO OUR OUTPATIENT WHERE SHE WAS GETTING SUBOXONE RX. HER LAST RX WAS 08/10/2018 FOR 7 DAYS. SHE HAS NOT BEEN BACK TO PROGRAM SINCE AND REPORTS SHE IS USING STREET SUBOXONE 8 MG ATLEAST TIW. HER UTOX IS + FILIBERTO, BUPRENORPHINE. SHE IS SELF REFERRED TODAY. REPORTS LONGEST CLEAN TIME 7 YEARS, RELAPSING 3 MONTHS AGO. DENIES SI/HI/AVH, SEIZURE D/O OR DRUG OVERDOSE. LIVES WITH SPOUSE, UNEMPLOYED, DENIES LEGALS. D/W CLIENT WILL DETOX HER WITH SUBOXONE TAPER. CLIENT AGREES. PMHX- ASTHMA, HEPATITIS C PSYCH- BIPOLAR, PTSD, PERSONALITY D/O Exam Limitations: No Limitations - Ebola screening Have you traveled outside of the country in the last 21 days: No Have you had contact with anyone from an Ebola affected area: No Have you been sick,other than usual withdrawal symptoms: No - Review of Systems Constitutional: Chills, Loss of Appetite, Malaise, Night Sweats, Changes in sleep EENT: reports: Nose Congestion, Dental Problems (MISSING TEETH) Respiratory: reports: No Symptoms reported Cardiac: reports: No Symptoms Reported GI: reports: Nausea, Poor Appetite, Poor Fluid Intake : reports: Incontinence Musculoskeletal: reports: Back Pain, Joint Pain Integumentary: reports: No Symptoms Reported Neuro: reports: Tremors Endocrine: reports: No Symptoms Reported Hematology: reports: No Symptoms Reported Psychiatric: reports: Anxious, Depressed Other Systems: Reviewed and Negative Patient History - Patient Medical History Hx Anemia: No Hx Asthma: Yes Hx Chronic Obstructive Pulmonary Disease (COPD): No Hx Cancer: No Hx Cardiac Disorders: No Hx Congestive Heart Failure: No Hx Hypertension: No Hx Hypercholesterolemia: No Hx Pacemaker: No HX Cerebrovascular Accident: No Hx Seizures: Yes (years ago r/t withdrawals) Hx Dementia: No Hx Diabetes: No Hx Gastrointestinal Disorders: Yes (GERD) Hx Liver Disease: No Hx Genitourinary Disorders: No Hx Sexually Transmitted Disorders: Yes (HERPES) Hx Renal Disease (ESRD): No Hx Thyroid Disease: Yes (HYPOTHYROIDISM) Hx Human Immunodeficiency Virus (HIV): No Hx Hepatitis C: Yes (treated years ago with interferon) Hx Depression: Yes Hx Suicide Attempt: Yes Hx Bipolar Disorder: Yes Hx Schizophrenia: No - Patient Surgical History Past Surgical History: Yes Hx Neurologic Surgery: No Hx Cataract Extraction: No Hx Cardiac Surgery: No Hx Lung Surgery: No Hx Breast Surgery: No Hx Breast Biopsy: Yes (RIGHT lumpectomy 2007) Hx Abdominal Surgery: Yes (gastric sleeve 2013) Hx Appendectomy: No Hx Cholecystectomy: No Hx Genitourinary Surgery: Yes (ovarians removed 2013) Hx Section: No (ectopic ) Hx Orthopedic Surgery: Yes (right carpal tunnel 2011; right elbow 2011) Hx Hysterectomy: Yes (2013) Other Surgical History: LUMBAR AND CERVICAL EPIDURAL Anesthesia Reaction: No - PPD History Previous Implant?: Yes Documented Results: Negative w/proof Implanted On Prior [facility] Admission?: Yes Date: 06/20/18 Results: 0 mm PPD to be Administered?: No - Reproductive History Patient is a Female of Child Bearing Age (11 -55 yrs old): Yes Last Menstrual Period: 04/24/13 Patient : No (NEG [facility]) - Smoking Cessation Smoking history: Current every day smoker Have you smoked in the past 12 months: Yes Aproximately how many cigarettes per day: 5 Cigars Per Day: 0 Hx Chewing Tobacco Use: No Initiated information on smoking cessation: Yes 'Breaking Loose' booklet given: 09/01/18 - Substance & Tx. History Hx Alcohol Use: Yes Hx Substance Use: Yes Substance Use Type: Alcohol, Opiates (SUBOXONE) Hx Substance Use Treatment: Yes ([facility]) - Substances Abused VODKA/BEER Route: Oral Frequency: Daily Amount used: 1 PINT/ 2-24OZ Age of first use: 10 Date of Last Use: 09/01/[address] SBX 8/2MG Route: Oral Frequency: 3-6 times per week Amount used: 8MG Age of first use: 52 Date of Last Use: 09/01/18 CRACK Route: Smoking Frequency: Daily Amount used: 1 GM Age of first use: 36 Date of Last Use: 09/01/18 Family Disease History - Family Disease History Family Disease History: Diabetes: Sister (psych problems, htn, leukemia), [place]: Mother ( breast cancer), Sister, Other: Father (, alcohol), Brother (two half brothers ), Sister, Son (one drowned age 11 months), Daughter (three - ages 33, 25,26 - onw with back surgery) Admission Physical Exam [facility] - Vital Signs Vital Signs: Vital Signs - 24 hr 09/01/18 19:30 Temperature 98.6 F Pulse Rate 90 Respiratory 18 Rate Blood Pressure 154/91 - Physical General Appearance: Yes: Appropriately Dressed, Moderate Distress, Tremorous, Anxious HEENTM: Yes: EOMI, Normocephalic, Normal Voice, RADHA, Pharynx Normal, Nasal Congestion, Other (MISSING TEETH) Respiratory: Yes: Chest Non-Tender, Lungs Clear, Normal Breath Sounds, No Respiratory Distress, No Accessory Muscle Use Neck: Yes: No masses,lesions,Nodules, Supple, Trachea in good position Breast: Yes: Breast Exam Deferred Cardiology: Yes: Regular Rhythm, S1, S2, Tachycardia Abdominal: Yes: Non Tender, Soft, Increased Bowel Sounds, Protuberent Genitourinary: Yes: Other (NO C/O) Back: Yes: Normal Inspection Musculoskeletal: Yes: full range of Motion, Gait Steady Extremities: Yes: Normal Capillary Refill, Normal Range of Motion, Non-Tender, Tremors Neurological: Yes: Fully Oriented, Alert, Motor Strength 5/5, Depressed Affect Integumentary: Yes: Dry, Cold, Track [place] Lymphatic: Yes: Within Normal Limits - Diagnostic (1) Opioid dependence with withdrawal Current Visit: Yes Status: Acute (2) Alcohol dependence with uncomplicated withdrawal Current Visit: Yes Status: Acute (3) Anxiety Current Visit: Yes Status: Chronic (4) Nicotine dependence Current Visit: Yes Status: Chronic Qualifiers: Nicotine product type: cigarettes Substance use status: in withdrawal Qualified Code(s): F17.213 - Nicotine dependence, cigarettes, with withdrawal Comment: counseled cessation - not ready (5) Substance induced mood disorder Current Visit: Yes Status: Suspected (6) Asthma Current Visit: Yes Status: Chronic Qualifiers: Asthma severity: mild Asthma persistence: intermittent Asthma complication type: with status asthmaticus Qualified Code(s): J45.22 - Mild intermittent asthma with status asthmaticus (7) Bipolar disorder Current Visit: Yes Status: Chronic Qualifiers: Current episode severity: unspecified (8) Cocaine dependence Current Visit: Yes Status: Chronic Qualifiers: Substance use status: uncomplicated Qualified Code(s): F14.20 - Cocaine dependence, uncomplicated (9) GERD (gastroesophageal reflux disease) Current Visit: Yes Status: Chronic Qualifiers: Esophagitis presence: without esophagitis Qualified Code(s): K21.9 - Gastro -esophageal reflux disease without esophagitis Cleared for Admission S - Detox or Rehab [facility] Level of Care: Medically Managed Detox Regimen/Protocol: Librium, Suboxone Claeared for Rehab Admission: No S Breath Alcohol Content Breath Alcohol Content: 0 Urine Pregancy Test - Result Urine Test Results: Negative- NO Line Present Urine Drug Screen - Results Drug Screen Negative: No Urine Drug Screen Results: FILIBERTO-Cocaine, BUP-Suboxone
[2018-09-01] MEDS ORDERED: MAGNESIUM CITRATE 300 ML BOTTLE PO PRN (21:37)
[2018-09-01] MEDS ORDERED: guaiFENesin/D-METHORPHAN HB 10 ML UNIT-DOSE CUPS PO PRN (21:37)
[2018-09-01] MEDS ORDERED: P-EPHED 60MG/TRIPROLIDI 2.5MG TABLET PO PRN (21:37)
[2018-09-01] MEDS ORDERED: MENTHOL/PHENOL 1 EACH UD MM PRN (21:37)
[2018-09-01] MEDS ORDERED: LOPERAMIDE HCL 2 MG CAPSULE PO PRN (21:37)
[2018-09-01] MEDS ORDERED: MAG HYDROX/AL HYDROX/SIMETH 30 ML UNIT-DOSE CUP PO PRN (21:37)
[2018-09-01] MEDS ORDERED: ACETAMINOPHEN 325 MG TABLET (FP) PO PRN (21:37)
[2018-09-01] MEDS ORDERED: MAGNESIUM HYDROX 2400MG/30ML ORAL SUSPENSION 30 ML CUP PO PRN (21:37)
[2018-09-01] MEDS ORDERED: NICOTINE POLACRILEX 2 MG GUM BC PRN (21:37)
[2018-09-01] MEDS: THIAMINE HCL 100 MG TABLET (FP) PO SCH (23:38)
[2018-09-01] MEDS: chlordiazePOXIDE HCL 25 MG CAPSULE PO SCH (23:38)
[2018-09-01] MEDS: MELATONIN 5 MG TABLETS PO PRN (23:41)
[2018-09-02] MEDS: chlordiazePOXIDE HCL 25 MG CAPSULE PO PRN ×2 (03:07→12:54)
[2018-09-02] MEDS: chlordiazePOXIDE HCL 25 MG CAPSULE PO SCH ×4 (05:43→22:29)
[2018-09-02] MEDS ORDERED: BUPRENORPHINE/NALOXONE 2 MG/0.5 MG FILM PACKET SL ONE (10:00)
[2018-09-02] MEDS: PRENATAL VITAMINS W/ FOLIC ACID TABLET (FP) PO SCH (10:26)
[2018-09-02] MEDS: NICOTINE 14 MG/24 HOURS TOPICAL PATCH TD SCH (10:26)
[2018-09-02 10:33] LABS: HEMATOCRIT 38.4 % (32.4-45.2); HEMOGLOBIN 12.7 GM/dL (10.7-15.3); MCH 28.7 pg (25.7-33.7); MEAN CELL VOLUME 86.9 fl (80-96); MEAN PLT VOLUME 7.9 fl (7.5-11.1); PLATELET COUNT 270 K/MM3 (134-434); RBC 4.42 M/mm3 (3.60-5.2); RDW 12.9 % (11.6-15.6); WHITE BLOOD COUNT 7.9 K/mm3 (4.0-10.0)
[2018-09-02 10:40] LABS: ALBUMIN 3.1 g/dl (3.4-5.0); ALK PHOS 107 U/L (45-117); ANION GAP 10 MMOL/L (8-16); BILIRUBIN,TOTAL 0.8 mg/dL (0.2-1); BLOOD UREA NITROGEN 15 mg/dL (7-18); CHLORIDE 103 mmol/L (98-107); CO2 27 mmol/L (21-32); CREATININE 0.8 mg/dL (0.55-1.3); GLUCOSE,RANDOM 106 mg/dL (74-106); POTASSIUM 3.4 mmol/L (3.5-5.1); SGOT/AST 52 U/L (15-37); SGPT/ALT 25 U/L (13-61); SODIUM 140 mmol/L (136-145); TOT PROT 6.5 g/dl (6.4-8.2)
--- NOTE | 2018-09-02 12:39 | PN ---
S CIWA - CIWA Score Nausea/Vomitin-Mild Nausea/No Vomiting Muscle Tremors: 4-Moderate,w/Arms Extend Anxiety: 4-Mod. Anxious/Guarded Agitation: 4-Moderately Restless Paroxysmal Sweats: 4-Forehead w/Sweat Beads Orientation: 1-Uncertain about Date Tacttile Disturbances: 0-None Auditory Disturbances: 0-None Visual Disturbances: 0-None Headache: 2-Mild CIWA-Ar Total Score: 20 [facility] Progress Note (SOAP) Subjective: tremor sweating anxiety restlessness Objective: 09/02/18 12:41 Vital Signs Temperature 97.7 F 09/02/18 09:16 Pulse Rate 77 09/02/18 09:16 Respiratory Rate 18 09/02/18 09:16 Blood Pressure 110/73 09/02/18 09:16 O2 Sat by Pulse Oximetry (%) Laboratory Last Values WBC 7.9 K/mm3 (4.0-10.0) 09/02/18 07:00 RBC 4.42 M/mm3 (3.60-5.2) 09/02/18 07:00 Hgb 12.7 GM/dL (10.7-15.3) 09/02/18 07:00 Hct 38.4 % (32.4-45.2) 09/02/18 07:00 MCV 86.9 fl (80-96) 09/02/18 07:00 MCH 28.7 pg (25.7-33.7) 09/02/18 07:00 MCHC 33.0 g/dl (32.0-36.0) 09/02/18 07:00 RDW 12.9 % (11.6-15.6) 09/02/18 07:00 Plt Count 270 K/MM3 (134-434) 09/02/18 07:00 MPV 7.9 fl (7.5-11.1) 09/02/18 07:00 Sodium 140 mmol/L (136-145) 09/02/18 07:00 Potassium 3.4 mmol/L (3.5-5.1) L 09/02/18 07:00 Chloride 103 mmol/L (98-107) 09/02/18 07:00 Carbon Dioxide 27 mmol/L (21-32) 09/02/18 07:00 Anion Gap 10 MMOL/L (8-16) 09/02/18 07:00 BUN 15 mg/dL (7-18) 09/02/18 07:00 Creatinine 0.8 mg/dL (0.55-1.3) 09/02/18 07:00 Creat Clearance w eGFR > 60 (>60) 09/02/18 07:00 Random Glucose 106 mg/dL (74-106) 09/02/18 07:00 Calcium 8.0 mg/dL (8.5-10.1) L 09/02/18 07:00 Total Bilirubin 0.8 mg/dL (0.2-1) 09/02/18 07:00 AST 52 U/L (15-37) H 09/02/18 07:00 ALT 25 U/L (13-61) 09/02/18 07:00 Alkaline Phosphatase 107 U/L (45-117) 09/02/18 07:00 Total Protein 6.5 g/dl (6.4-8.2) 09/02/18 07:00 Albumin 3.1 g/dl (3.4-5.0) L 09/02/18 07:00 HIV 1&2 Antibody Screen Negative 09/02/18 07:00 HIV P24 Antigen Negative 09/02/18 07:00 lab noted low K+ Assessment: 09/02/18 12:45 withdrawal sx Plan: continue detox K+ supplement repeat K+
--- NOTE | 2018-09-02 12:49 | HP ---
COWS - Scale Resting Pulse: 1= [place] 81-100 Sweatin= Chills/Flushing Restless Observation: 5= Unable to Sit Still Pupil Size: 0= Normal to Room Light Bone or Joint Aches: 4=Acute Joint/Muscle Pain Runny Nose/ Eye Tearin= Runny Nose/Eyes GI Upset > 30mins: 2= Nausea/Diarrhea Tremor Observation: 4= Gross Tremor/Twitching Yawning Observation: 0= None Anxiety or Irritability: 2=Irritable/Anxious Goose Flesh Skin: 0=Smooth Skin COWS Score: 21 CIWA Score Nausea/Vomitin-Mild Nausea/No Vomiting Muscle Tremors: 4-Moderate,w/Arms Extend Anxiety: 4-Mod. Anxious/Guarded Agitation: 4-Moderately Restless Paroxysmal Sweats: 4-Forehead w/Sweat Beads Orientation: 1-Uncertain about Date Tacttile Disturbances: 0-None Auditory Disturbances: 0-None Visual Disturbances: 0-None Headache: 2-Mild CIWA-Ar Total Score: 20 - Admission Criteria OASAS Guidelines: Admission for Medically Managed Detox: Requires at least one of the followin. CIWA greater than 12 2. Seizures within the past 24 hours 3. Delirium tremens within the past 24 hours 4. Hallucinations within the past 24 hours 5. Acute intervention needed for co occurring medical disorder 6. Acute intervention needed for co occurring psychiatric disorder 7. Severe withdrawal that cannot be handled at a lower level of care (continued vomiting, continued diarrhea, abnormal vital signs) requiring intravenous medication and/or fluids 8. Admission ROS [facility] Allergies/Adverse Reactions: Allergies Allergy/AdvReac Type Severity Reaction Status Date / Time Fish Containing Products Allergy Rash Verified 09/01/18 22:35 No Known Drug Allergies Allergy Verified 09/01/18 22:35 - Ebola screening Have you traveled outside of the country in the last 21 days: No Have you had contact with anyone from an Ebola affected area: No Have you been sick,other than usual withdrawal symptoms: No Patient History - Patient Medical History Hx Anemia: No Hx Asthma: Yes Hx Chronic Obstructive Pulmonary Disease (COPD): No Hx Cancer: No Hx Cardiac Disorders: No Hx Congestive Heart Failure: No Hx Hypertension: No Hx Hypercholesterolemia: No Hx Pacemaker: No HX Cerebrovascular Accident: No Hx Seizures: Yes (years ago r/t withdrawals) Hx Dementia: No Hx Diabetes: No Hx Gastrointestinal Disorders: Yes (GERD) Hx Liver Disease: No Hx Genitourinary Disorders: No Hx Sexually Transmitted Disorders: Yes (HERPES) Hx Renal Disease (ESRD): No Hx Thyroid Disease: Yes (HYPOTHYROIDISM) Hx Human Immunodeficiency Virus (HIV): No Hx Hepatitis C: Yes (treated years ago with interferon) Hx Depression: Yes Hx Suicide Attempt: Yes Hx Bipolar Disorder: Yes Hx Schizophrenia: No - Patient Surgical History Past Surgical History: Yes Hx Neurologic Surgery: No Hx Cataract Extraction: No Hx Cardiac Surgery: No Hx Lung Surgery: No Hx Breast Surgery: No Hx Breast Biopsy: Yes (RIGHT lumpectomy 2007) Hx Abdominal Surgery: Yes (gastric sleeve 2013) Hx Appendectomy: No Hx Cholecystectomy: No Hx Genitourinary Surgery: Yes (ovarians removed 2013) Hx Section: No (ectopic ) Hx Orthopedic Surgery: Yes (right carpal tunnel 2011; right elbow 2011) Hx Hysterectomy: Yes (2013) Other Surgical History: LUMBAR AND CERVICAL EPIDURAL Anesthesia Reaction: No - PPD History Previous Implant?: Yes Documented Results: Negative w/proof Implanted On Prior [facility] Admission?: Yes Date: 06/20/18 Results: 0 mm - Reproductive History Last Menstrual Period: 04/24/13 Patient : No (NEG [facility]) - Smoking Cessation Smoking history: Current every day smoker Have you smoked in the past 12 months: Yes Aproximately how many cigarettes per day: 5 If you are a former smoker, when did you quit?: 2009 Cigars Per Day: 0 Hx Chewing Tobacco Use: No Initiated information on smoking cessation: Yes - Substances Abused VODKA/BEER Route: Oral Frequency: Daily Amount used: 1 PINT/ 2-24OZ Age of first use: 10 Date of Last Use: 09/01/[address] SBX 8/2MG Route: Oral Frequency: 3-6 times per week Amount used: 8MG Age of first use: 52 Date of Last Use: 09/01/18 CRACK Route: Smoking Frequency: Daily Amount used: 1 GM Age of first use: 36 Date of Last Use: 09/01/18 Family Disease History - Family Disease History Family Disease History: Diabetes: Sister (psych problems, htn, leukemia), [place]: Mother ( breast cancer), Sister, Other: Father (, alcohol), Brother (two half brothers ), Sister, Son (one drowned age 11 months), Daughter (three - ages 33, 25,26 - onw with back surgery) Admission Physical Exam [facility] - Vital Signs Vital Signs: Vital Signs - 24 hr 09/01/18 09/01/18 09/02/18 19:30 23:55 06:14 Temperature 98.6 F 98.3 F 98.1 F Pulse Rate 90 88 71 Respiratory 18 16 18 Rate Blood Pressure 154/91 124/85 99/70 09/02/18 09:16 Temperature 97.7 F Pulse Rate 77 Respiratory 18 Rate Blood Pressure 110/73 [facility] Breath Alcohol Content Breath Alcohol Content: 0 Urine Pregancy Test - Result Urine Test Results: Negative- NO Line Present Urine Drug Screen - Results Drug Screen Negative: No Urine Drug Screen Results: FILIBERTO-Cocaine, BUP-Suboxone
[2018-09-02] MEDS: POTASSIUM CHLORIDE TABS 20 MEQ TABLET.ER (FP) PO SCH (12:54)
[2018-09-02 13:28] LABS: URINE APPEARANCE CLEAR; URINE BILIRUBIN NEGATIVE (<2.0 mg/dL); URINE COLOR YELLOW; URINE GLUCOSE (UA) NEGATIVE (NEGATIVE); URINE KETONE NEGATIVE (NEGATIVE); URINE LEUK ESTERASE NEGATIVE (NEGATIVE); URINE NITRITE NEGATIVE (NEGATIVE); URINE PROTEIN NEGATIVE (NEGATIVE)
--- NOTE | 2018-09-02 14:50 | CONSULT ---
[facility] Psychiatric Consult - Data Date of interview: 09/02/18 Admission source: [facility] Identifying data: This is 53 yo AA female mother of 3,residing with ,supported by him. Psychiatric History: Patient sees psychiatrist at [facility].Current medications:Abilify 20 mg po daily and Trazodone 200 mg po hs. Mental Status Exam - Mental Status Exam Alert and Oriented to: Time, Place, Person Cognitive Function: Grossly Intact Patient Appearance: Well Groomed Mood: Anxious Affect: Labile Patient Behavior: Cooperative Speech Pattern: Clear Voice Loudness: Normal Thought Process: Goal Oriented Thought Disorder: Being Controlled Hallucinations: Denies Suicidal Ideation: Denies Homicidal Ideation: Denies Insight/Judgement: Fair Sleep: Fair Appetite: Good Muscle strength/Tone: Normal Gait/Station: Normal Psychiatric Findings - Problem List ([place] 1, 2,3) (1) Alcohol dependence with uncomplicated withdrawal Status: Chronic (2) Opioid dependence with withdrawal Status: Chronic (3) Bipolar disorder Status: Chronic Qualifiers: Current episode severity: unspecified Comment: By history. On medications. (4) Cocaine dependence Status: Chronic Qualifiers: Substance use status: uncomplicated Qualified Code(s): F14.20 - Cocaine dependence, uncomplicated (5) GERD (gastroesophageal reflux disease) Status: Chronic Qualifiers: Esophagitis presence: without esophagitis Qualified Code(s): K21.9 - Gastro -esophageal reflux disease without esophagitis (6) Nicotine dependence Status: Chronic Qualifiers: Nicotine product type: cigarettes Substance use status: in withdrawal Qualified Code(s): F17.213 - Nicotine dependence, cigarettes, with withdrawal Comment: counseled cessation - not ready - Initial Treatment Plan Initial Treatment Plan: Continue current medications as per plan.Will monitor progress.
[2018-09-02] MEDS: ARIPiprazole 10 MG TABLET PO SCH (15:54)
[2018-09-02] MEDS: traZODone HCL 100 MG TABLET (FP) PO SCH (22:29)
[2018-09-02] MEDS: THIAMINE HCL 100 MG TABLET (FP) PO SCH (22:29)
[2018-09-03] MEDS: chlordiazePOXIDE HCL 25 MG CAPSULE PO SCH ×3 (06:28→16:53)
[2018-09-03] MEDS ORDERED: BUPRENORPHINE/NALOXONE 2 MG/0.5 MG FILM PACKET SL ONE (10:00)
[2018-09-03] MEDS: NICOTINE 14 MG/24 HOURS TOPICAL PATCH TD SCH (10:13)
[2018-09-03] MEDS: ARIPiprazole 10 MG TABLET PO SCH (10:13)
[2018-09-03] MEDS: POTASSIUM CHLORIDE TABS 20 MEQ TABLET.ER (FP) PO SCH (10:13)
[2018-09-03] MEDS: PRENATAL VITAMINS W/ FOLIC ACID TABLET (FP) PO SCH (10:13)
[2018-09-03] MEDS ORDERED: chlordiazePOXIDE 5 MG CAPSULE PO ONE (10:27)
[2018-09-03] MEDS: LIDOCAINE 5% TOPICAL PATCH TP SCH (10:47)
--- NOTE | 2018-09-03 11:50 | PN ---
[facility] CIWA - CIWA Score Nausea/Vomitin-Mild Nausea/No Vomiting Muscle Tremors: 3 Anxiety: 3 Agitation: 4-Moderately Restless Paroxysmal Sweats: 1-Minimal Palms Moist Orientation: 1-Uncertain about Date Tacttile Disturbances: 0-None Auditory Disturbances: 0-None Visual Disturbances: 0-None Headache: 2-Mild CIWA-Ar Total Score: 15 S COWS - Scale Resting Pulse: 0= VT 80 or Below Sweatin= Chills/Flushing Restless Observation: 0= Sits Still Pupil Size: 0= Normal to Room Light Bone or Joint Aches: 2= Severe Diffuse Aches Runny Nose/ Eye Tearin= Runny Nose/Eyes GI Upset > 30mins: 2= Nausea/Diarrhea Tremor Observation of Outstretched Hands: 2= Slight Tremor Visible Yawning Observation: 1= 1-2x During Session Anxiety or Irritability: 1=Feels Anxious/Irritable Goose Flesh Skin: 0=Smooth Skin COWS Score: 11 [facility] Progress Note (SOAP) Subjective: body aches joints pain knees joints effusion draining "once a year" last drainage "three" months ago tremor sweating Objective: 09/03/18 11:59 Vital Signs Temperature 97.9 F 09/03/18 09:22 Pulse Rate 54 L 09/03/18 09:22 Respiratory Rate 18 09/03/18 09:22 Blood Pressure 98/56 L 09/03/18 09:22 O2 Sat by Pulse Oximetry (%) Laboratory Last Values WBC 7.9 K/mm3 (4.0-10.0) 09/02/18 07:00 RBC 4.42 M/mm3 (3.60-5.2) 09/02/18 07:00 Hgb 12.7 GM/dL (10.7-15.3) 09/02/18 07:00 Hct 38.4 % (32.4-45.2) 09/02/18 07:00 MCV 86.9 fl (80-96) 09/02/18 07:00 MCH 28.7 pg (25.7-33.7) 09/02/18 07:00 MCHC 33.0 g/dl (32.0-36.0) 09/02/18 07:00 RDW 12.9 % (11.6-15.6) 09/02/18 07:00 Plt Count 270 K/MM3 (134-434) 09/02/18 07:00 MPV 7.9 fl (7.5-11.1) 09/02/18 07:00 Sodium 140 mmol/L (136-145) 09/02/18 07:00 Potassium 3.4 mmol/L (3.5-5.1) L 09/02/18 07:00 Chloride 103 mmol/L (98-107) 09/02/18 07:00 Carbon Dioxide 27 mmol/L (21-32) 09/02/18 07:00 Anion Gap 10 MMOL/L (8-16) 09/02/18 07:00 BUN 15 mg/dL (7-18) 09/02/18 07:00 Creatinine 0.8 mg/dL (0.55-1.3) 09/02/18 07:00 Creat Clearance w eGFR > 60 (>60) 09/02/18 07:00 Random Glucose 106 mg/dL (74-106) 09/02/18 07:00 Calcium 8.0 mg/dL (8.5-10.1) L 09/02/18 07:00 Total Bilirubin 0.8 mg/dL (0.2-1) 09/02/18 07:00 AST 52 U/L (15-37) H 09/02/18 07:00 ALT 25 U/L (13-61) 09/02/18 07:00 Alkaline Phosphatase 107 U/L (45-117) 09/02/18 07:00 Total Protein 6.5 g/dl (6.4-8.2) 09/02/18 07:00 Albumin 3.1 g/dl (3.4-5.0) L 09/02/18 07:00 Urine Color Yellow 09/02/18 10:45 Urine Appearance Clear 09/02/18 10:45 Urine pH 5.0 (5.0-8.0) 09/02/18 10:45 Ur Specific [place] 1.023 (1.010-1.035) 09/02/18 10:45 Urine Protein Negative (NEGATIVE) 09/02/18 10:45 Urine Glucose (UA) Negative (NEGATIVE) 09/02/18 10:45 Urine Ketones Negative (NEGATIVE) 09/02/18 10:45 Urine Blood Negative (NEGATIVE) 09/02/18 10:45 Urine Nitrite Negative (NEGATIVE) 09/02/18 10:45 Urine Bilirubin Negative (<2.0 mg/dL) 09/02/18 10:45 Urine Urobilinogen 2.0 mg/dL (0.2-1.0) H 09/02/18 10:45 Ur Leukocyte Esterase Negative (NEGATIVE) 09/02/18 10:45 RPR Titer Nonreactive (NONREACTIVE) 09/02/18 07:00 HIV 1&2 Antibody Screen Negative 09/02/18 07:00 HIV P24 Antigen Negative 09/02/18 07:00 lab noted Assessment: 09/03/18 12:01 withdrawal sx Plan: continue detox patient is doing well with suboxone detox regimen
[2018-09-03] MEDS: CALCIUM 250MG/VIT-D 125 UNITS 1 COMBO TABLET PO SCH ×2 (13:53→22:08)
[2018-09-03] MEDS: IBUPROFEN 400 MG TABLET (FP) PO PRN ×2 (14:00→20:26)
[2018-09-03] MEDS: chlordiazePOXIDE HCL 25 MG CAPSULE PO PRN (20:25)
[2018-09-03] MEDS: THIAMINE HCL 100 MG TABLET (FP) PO SCH (22:07)
[2018-09-03] MEDS: traZODone HCL 100 MG TABLET (FP) PO SCH (22:08)
[2018-09-03] MEDS: LIDOCAINE PATCH REMOVAL MC SCH (22:08)
[2018-09-03] MEDS: chlordiazePOXIDE 5 MG CAPSULE PO SCH (22:08)
[2018-09-04] MEDS: chlordiazePOXIDE 5 MG CAPSULE PO SCH ×3 (05:55→16:33)
[2018-09-04] MEDS ORDERED: BUPRENORPHINE/NALOXONE 2 MG/0.5 MG FILM PACKET SL SCH (10:00)
[2018-09-04] MEDS: ARIPiprazole 10 MG TABLET PO SCH (10:11)
[2018-09-04] MEDS: PRENATAL VITAMINS W/ FOLIC ACID TABLET (FP) PO SCH (10:11)
[2018-09-04] MEDS: CALCIUM 250MG/VIT-D 125 UNITS 1 COMBO TABLET PO SCH ×2 (10:11→22:07)
[2018-09-04] MEDS: LIDOCAINE 5% TOPICAL PATCH TP SCH (10:11)
[2018-09-04] MEDS: POTASSIUM CHLORIDE TABS 20 MEQ TABLET.ER (FP) PO SCH (10:11)
[2018-09-04] MEDS: NICOTINE 14 MG/24 HOURS TOPICAL PATCH TD SCH (10:11)
[2018-09-04] MEDS: chlordiazePOXIDE HCL 25 MG CAPSULE PO PRN (14:28)
--- NOTE | 2018-09-04 17:26 | PN ---
[facility] Progress Note (SOAP) Subjective: Fatigue, Sweating, Body Aches. Objective: PATIENT A & O X 2 (UNCERTAIN ABOUT CURRENT DAY / DATE). IN NO ACUTE DISTRESS. 09/04/18 17:24 Vital Signs Temperature 98.5 F 09/04/18 14:52 Pulse Rate 80 09/04/18 14:52 Respiratory Rate 18 09/04/18 14:52 Blood Pressure 122/68 09/04/18 14:52 O2 Sat by Pulse Oximetry (%) Laboratory Tests 09/02/18 09/02/18 09/02/18 07:00 07:00 07:00 WBC 7.9 RBC 4.42 Hgb 12.7 Hct 38.4 MCV 86.9 MCH 28.7 MCHC 33.0 RDW 12.9 Plt Count 270 MPV 7.9 Sodium 140 Potassium 3.4 L Chloride 103 Carbon Dioxide 27 Anion Gap 10 BUN 15 Creatinine 0.8 Creat Clearance w eGFR > 60 Random Glucose 106 Calcium 8.0 L Total Bilirubin 0.8 AST 52 H ALT 25 Alkaline Phosphatase 107 Total Protein 6.5 Albumin 3.1 L Urine Color Urine Appearance Urine pH Ur Specific [place] Urine Protein Urine Glucose (UA) Urine Ketones Urine Blood Urine Nitrite Urine Bilirubin Urine Urobilinogen Ur Leukocyte Esterase RPR Titer Nonreactive HIV 1&2 Antibody Screen HIV P24 Antigen 09/02/18 09/02/18 09/04/18 07:00 10:45 07:00 WBC RBC Hgb Hct MCV MCH MCHC RDW Plt Count MPV Sodium Potassium 4.3 Chloride Carbon Dioxide Anion Gap BUN Creatinine Creat Clearance w eGFR Random Glucose Calcium Total Bilirubin AST ALT Alkaline Phosphatase Total Protein Albumin Urine Color Yellow Urine Appearance Clear Urine pH 5.0 Ur Specific [place] 1.023 Urine Protein Negative Urine Glucose (UA) Negative Urine Ketones Negative Urine Blood Negative Urine Nitrite Negative Urine Bilirubin Negative Urine Urobilinogen 2.0 H Ur Leukocyte Esterase Negative RPR Titer HIV 1&2 Antibody Screen Negative HIV P24 Antigen Negative LABS NOTED. RESULT OF REPEAT K LEVEL NOTED. K LEVEL NOW NOTED TO BE WITHIN NORMAL LIMITS. Assessment: 09/04/18 17:25 WITHDRAWAL SYMPTOMS. Plan: CONTINUE DETOX. INCREASE DAILY PO FLUID INTAKE.
[2018-09-04] MEDS: THIAMINE HCL 100 MG TABLET (FP) PO SCH (22:06)
[2018-09-04] MEDS: traZODone HCL 100 MG TABLET (FP) PO SCH (22:06)
[2018-09-04] MEDS: chlordiazePOXIDE HCL 10 MG CAPSULE PO SCH (22:07)
[2018-09-04] MEDS: LIDOCAINE PATCH REMOVAL MC SCH (22:07)
[2018-09-04] MEDS: MELATONIN 5 MG TABLETS PO PRN (22:08)
[2018-09-05] MEDS: chlordiazePOXIDE HCL 10 MG CAPSULE PO SCH ×2 (05:20→10:03)
[2018-09-05] MEDS ORDERED: BUPRENORPHINE/NALOXONE 2 MG/0.5 MG FILM PACKET SL ONE (06:00)
[2018-09-05 09:21] VITALS: BP 116/83; PULSE 88; TEMP 98
[2018-09-05] MEDS: NICOTINE 14 MG/24 HOURS TOPICAL PATCH TD SCH (10:03)
[2018-09-05] MEDS: ARIPiprazole 10 MG TABLET PO SCH (10:03)
[2018-09-05] MEDS: LIDOCAINE 5% TOPICAL PATCH TP SCH (10:03)
[2018-09-05] MEDS: CALCIUM 250MG/VIT-D 125 UNITS 1 COMBO TABLET PO SCH (10:03)
[2018-09-05] MEDS: PRENATAL VITAMINS W/ FOLIC ACID TABLET (FP) PO SCH (10:03)
[2018-09-05] MEDS: POTASSIUM CHLORIDE TABS 20 MEQ TABLET.ER (FP) PO SCH (10:03)
--- NOTE | 2018-09-05 12:57 | DS ---
[facility] Detox Discharge Summary Admission Date: 09/01/18 Discharge Date: 09/05/18 - History Additional Comments: Patient is being discharged to Rehab. floor Pertinent Past History: Opioid dependence on agonist therapy, alcohol dependence, cough, asthma, cough and cannabis dependence - Physical Exam Results Vital Signs: Vital Signs Temperature 98.0 F 09/05/18 09:19 Pulse Rate 88 09/05/18 09:19 Respiratory Rate 18 09/05/18 09:19 Blood Pressure 116/83 09/05/18 09:19 O2 Sat by Pulse Oximetry (%) Laboratory Last Values WBC 7.9 K/mm3 (4.0-10.0) 09/02/18 07:00 RBC 4.42 M/mm3 (3.60-5.2) 09/02/18 07:00 Hgb 12.7 GM/dL (10.7-15.3) 09/02/18 07:00 Hct 38.4 % (32.4-45.2) 09/02/18 07:00 MCV 86.9 fl (80-96) 09/02/18 07:00 MCH 28.7 pg (25.7-33.7) 09/02/18 07:00 MCHC 33.0 g/dl (32.0-36.0) 09/02/18 07:00 RDW 12.9 % (11.6-15.6) 09/02/18 07:00 Plt Count 270 K/MM3 (134-434) 09/02/18 07:00 MPV 7.9 fl (7.5-11.1) 09/02/18 07:00 Sodium 140 mmol/L (136-145) 09/02/18 07:00 Potassium 4.3 mmol/L (3.5-5.1) 09/04/18 07:00 Chloride 103 mmol/L (98-107) 09/02/18 07:00 Carbon Dioxide 27 mmol/L (21-32) 09/02/18 07:00 Anion Gap 10 MMOL/L (8-16) 09/02/18 07:00 BUN 15 mg/dL (7-18) 09/02/18 07:00 Creatinine 0.8 mg/dL (0.55-1.3) 09/02/18 07:00 Creat Clearance w eGFR > 60 (>60) 09/02/18 07:00 Random Glucose 106 mg/dL (74-106) 09/02/18 07:00 Calcium 8.0 mg/dL (8.5-10.1) L 09/02/18 07:00 Total Bilirubin 0.8 mg/dL (0.2-1) 09/02/18 07:00 AST 52 U/L (15-37) H 09/02/18 07:00 ALT 25 U/L (13-61) 09/02/18 07:00 Alkaline Phosphatase 107 U/L (45-117) 09/02/18 07:00 Total Protein 6.5 g/dl (6.4-8.2) 09/02/18 07:00 Albumin 3.1 g/dl (3.4-5.0) L 09/02/18 07:00 Urine Color Yellow 09/02/18 10:45 Urine Appearance Clear 09/02/18 10:45 Urine pH 5.0 (5.0-8.0) 09/02/18 10:45 Ur Specific [place] 1.023 (1.010-1.035) 09/02/18 10:45 Urine Protein Negative (NEGATIVE) 09/02/18 10:45 Urine Glucose (UA) Negative (NEGATIVE) 09/02/18 10:45 Urine Ketones Negative (NEGATIVE) 09/02/18 10:45 Urine Blood Negative (NEGATIVE) 09/02/18 10:45 Urine Nitrite Negative (NEGATIVE) 09/02/18 10:45 Urine Bilirubin Negative (<2.0 mg/dL) 09/02/18 10:45 Urine Urobilinogen 2.0 mg/dL (0.2-1.0) H 09/02/18 10:45 Ur Leukocyte Esterase Negative (NEGATIVE) 09/02/18 10:45 RPR Titer Nonreactive (NONREACTIVE) 09/02/18 07:00 HIV 1&2 Antibody Screen Negative 09/02/18 07:00 HIV P24 Antigen Negative 09/02/18 07:00 Labs reviewed Pertinent Admission Physical Exam Findings: Withdrawal symptoms - Medication Discharge Medications: Ambulatory Orders Valacyclovir HCl [Valtrex -] 500 mg PO BID #20 tablet 04/29/16 Aripiprazole 10 mg PO DAILY 06/18/18 Oxybutynin Chloride [Ditropan Xl] 15 mg PO DAILY 06/18/18 traZODone HCL [Trazodone HCl] 200 mg PO HS 06/18/18 Docusate Sodium [Colace -] 100 mg PO TID #90 capsule 07/14/18 Calcium 250Mg/Vit-D 125 Units [Oscal 250 mg+D -] 1 combo PO BID 09/05/18 Gabapentin [Neurontin -] 100 mg PO TID 09/05/18 Lidocaine 5% Patch [Lidoderm Patch -] 1 patch TP DAILY 09/05/18 - Diagnosis (1) Abdominal pain Status: Acute (2) Alcohol dependence Status: Acute (3) Heroin dependence Status: Acute (4) Knee pain, bilateral Status: Acute Qualifiers: Chronicity: chronic Qualified Code(s): M25.561 - Pain in right knee (5) Lumbar pain with radiation down left leg Status: Acute (6) Alcohol dependence with uncomplicated withdrawal Status: Chronic (7) Anxiety Status: Chronic (8) Arthritis of knee, degenerative Status: Chronic Qualifiers: Osteoarthritis type: primary Laterality: bilateral Qualified Code(s): M17.0 - Bilateral primary osteoarthritis of knee (9) Asthma Status: Chronic Qualifiers: Asthma severity: mild Asthma persistence: intermittent Asthma complication type: with status asthmaticus Qualified Code(s): J45.22 - Mild intermittent asthma with status asthmaticus (10) Cannabis dependence Status: Chronic (11) Chronic lower back pain Status: Chronic Qualifiers: Back pain laterality: bilateral Sciatica presence: with sciatica Sciatica laterality: bilateral sciatica Qualified Code(s): M54.42 - Lumbago with sciatica, left side; M54.41 - Lumbago with sciatica, right side; G89.29 - Other chronic pain (12) GERD (gastroesophageal reflux disease) Status: Chronic Qualifiers: Esophagitis presence: without esophagitis Qualified Code(s): K21.9 - Gastro -esophageal reflux disease without esophagitis (13) Herpes Status: Chronic (14) 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
== END 2018-09-05 11:28 | disposition other institution (70) | DRG 773 ==
LOC: YASAS 18:16 → Y3N 21:53
PROVIDERS: ADMIT Neuromusculoskeletal Medicine & OMM; ATTEND Neuromusculoskeletal Medicine & OMM
PROC: HZ2ZZZZ Detoxification Services for Substance Abuse Treatment (ICD-10-PCS; principal; 2018-09-01)
DX: F10.230 Alcohol dependence with withdrawal, uncomplicated (principal); F12.20 Cannabis dependence, uncomplicated; F11.20 Opioid dependence, uncomplicated; F17.213 Nicotine dependence, cigarettes, with withdrawal; F41.9 Anxiety disorder, unspecified; J45.22 Mild intermittent asthma with status asthmaticus; K21.9 Gastro-esophageal reflux disease without esophagitis; B00.9 Herpesviral infection, unspecified; M17.0 Bilateral primary osteoarthritis of knee; M54.41 Lumbago with sciatica, right side; M54.42 Lumbago with sciatica, left side; G89.29 Other chronic pain; R10.9 Unspecified abdominal pain
CPT/HCPCS: 36415; 80053; 81003; 84132; 85027; 86593; 87389

== ENCOUNTER 2018-09-05 11:37 | Inpatient (IN) | payer OTHER ==
[2018-09-05 12:06] VITALS: BMI 31.6
--- NOTE | 2018-09-05 13:08 | HP ---
[facility] Rehab Assess/Revision - Admission History Admitted to Rehab from: [facility] Date of Admission to Rehab: 09/05/2018 - Vital signs Vital Signs: Vital Signs Period Temp Pulse Resp BP Sys/[place] Pulse Ox Last 24 Hr 98.6 F 97 18 104/72 - Findings Detox History & Physical reviewed: Yes Concur with findings: Yes Comments/Additional Findings: Patient was transfered from [facility] alert and oriented to person, place and time. Denies withdrawal symptoms at this time. Patient is in no acute distress at this time. Inpatient Rehab Admission - Initial Determination Are CD services needed?: Yes Free of communicable disease: Yes Not in need of hospitalization: Yes - Rehab Admission Criteria Previous failed treatment: Yes Poor recovery environment: Yes Comorbidities: Yes Lacks judgement: No Patient is meeting Inpatient Rehab admission criteria:: Yes
[2018-09-05] MEDS ORDERED: LOPERAMIDE HCL 2 MG CAPSULE PO PRN (13:09)
[2018-09-05] MEDS ORDERED: guaiFENesin/D-METHORPHAN HB 10 ML UNIT-DOSE CUPS PO PRN (13:09)
[2018-09-05] MEDS ORDERED: MAGNESIUM HYDROX 2400MG/30ML ORAL SUSPENSION 30 ML CUP PO PRN (13:09)
[2018-09-05] MEDS ORDERED: P-EPHED 60MG/TRIPROLIDI 2.5MG TABLET PO PRN (13:09)
[2018-09-05] MEDS ORDERED: MAGNESIUM CITRATE 300 ML BOTTLE PO PRN (13:09)
[2018-09-05] MEDS ORDERED: NICOTINE POLACRILEX 2 MG GUM BUC PRN (13:09)
[2018-09-05] MEDS ORDERED: MAG HYDROX/AL HYDROX/SIMETH 30 ML UNIT-DOSE CUP PO PRN (13:09)
[2018-09-05] MEDS ORDERED: ACETAMINOPHEN 325 MG TABLET (FP) PO PRN (13:09)
[2018-09-05] MEDS ORDERED: MENTHOL/PHENOL 1 EACH UD MM PRN (13:09)
[2018-09-05] MEDS: LIDOCAINE 5% TOPICAL PATCH TP SCH (14:24)
[2018-09-05] MEDS: GABAPENTIN 100 MG CAPSULE (FP) PO SCH ×2 (14:33→21:20)
[2018-09-05] MEDS: DOCUSATE SODIUM 100 MG CAPSULE (FP) PO SCH ×2 (14:33→21:19)
[2018-09-05] MEDS ORDERED: BUPRENORPHINE/NALOXONE 2 MG/0.5 MG FILM PACKET SL ONE (15:21)
--- NOTE | 2018-09-05 15:36 | PN ---
[facility] Progress Note Note: Patient reports that she was on Buprenorphine 8mg sublingual at [facility] and she will like to be restarted on Buprenorphine. I spoke to Ms. oWng who is the COLLECTIVE BARGAINING SPECIALIST at the program. She indicates that patient has not been to the program since July. Patient was tapered off Buprenorphine and will need to be reevaluated at [facility] after her Rehab. Vital Signs Temperature 98.6 F 09/05/18 12:04 Pulse Rate 97 H 09/05/18 12:04 Respiratory Rate 18 09/05/18 12:04 Blood Pressure 104/72 09/05/18 12:04 O2 Sat by Pulse Oximetry (%) Action: Buprenorphine /Nalaxone 2mg/0.5mgsublingua film ordered
[2018-09-05] MEDS: IBUPROFEN 400 MG TABLET (FP) PO PRN (17:27)
--- NOTE | 2018-09-05 20:06 | CONSULT ---
[facility] Psychiatric Consult - Data Date of interview: 09/05/18 Admission source: Transfer from [address] [place] [address]. Identifying data: Case of a 53 y/o female, who underwent detoxification at [address] [place] [address] and got referred to [facility] for rehabilitation treatment. Issues : alcohol dependence, cocaine/crack dependence co-morbid with Bipolar Disorder + PTSD.
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
[2018-09-05] MEDS: valACYclovir HCL 500 MG TABLET (FP) PO SCH (21:19)
[2018-09-05] MEDS: traZODone HCL 50 MG TABLET (FP) PO SCH (21:19)
[2018-09-05] MEDS: THIAMINE HCL 100 MG TABLET (FP) PO SCH (21:20)
[2018-09-05] MEDS: LIDOCAINE PATCH REMOVAL MC SCH (21:20)
[2018-09-05] MEDS: CALCIUM 250MG/VIT-D 125 UNITS 1 COMBO TABLET PO SCH (21:22)
[2018-09-05] MEDS ORDERED: MELATONIN 5 MG TABLETS PO PRN (22:00)
[2018-09-06] MEDS: DOCUSATE SODIUM 100 MG CAPSULE (FP) PO SCH ×3 (06:34→21:30)
[2018-09-06] MEDS: GABAPENTIN 100 MG CAPSULE (FP) PO SCH ×3 (06:34→21:29)
[2018-09-06] MEDS ORDERED: BUPRENORPHINE/NALOXONE 2 MG/0.5 MG FILM PACKET SL ONE (09:56)
[2018-09-06] MEDS ORDERED: LIDOCAINE 5% TOPICAL PATCH TP SCH (10:00)
[2018-09-06] MEDS: CALCIUM 250MG/VIT-D 125 UNITS 1 COMBO TABLET PO SCH ×2 (10:05→21:30)
[2018-09-06] MEDS: LIDOCAINE 5% TOPICAL PATCH TP SCH (10:05)
[2018-09-06] MEDS: valACYclovir HCL 500 MG TABLET (FP) PO SCH ×2 (10:05→21:30)
[2018-09-06] MEDS: PRENATAL VITAMINS W/ FOLIC ACID TABLET (FP) PO SCH (10:05)
[2018-09-06] MEDS: ARIPiprazole 5 MG TABLET (FP) PO SCH (10:05)
[2018-09-06] MEDS: NICOTINE 14 MG/24 HOURS TOPICAL PATCH TD SCH (10:07)
--- NOTE | 2018-09-06 10:07 | PN ---
[facility] Progress Note Note: received nurse called that the patient wants suboxone as opiate dependent treatment observed patient lying on bed body aches joints pain restlessness patient prefers return to suboxone maintenance program upon discharge from chemical rehab stated that suboxone program much better to cope with opiate addiction suboxone 4 - 2 mg one dose now continue to evaluate for tolerance the patient would like to return to [facility] for suboxone maintenance follow up on friday when [facility] open
[2018-09-06] MEDS: IBUPROFEN 400 MG TABLET (FP) PO PRN (11:01)
[2018-09-06] MEDS ORDERED: PT OWN MED DRAWER 7, Y5N ONE (20:00)
[2018-09-06] MEDS: traZODone HCL 50 MG TABLET (FP) PO SCH (21:29)
[2018-09-06] MEDS: LIDOCAINE PATCH REMOVAL MC SCH (21:30)
[2018-09-06] MEDS: THIAMINE HCL 100 MG TABLET (FP) PO SCH (21:30)
[2018-09-07] MEDS: DOCUSATE SODIUM 100 MG CAPSULE (FP) PO SCH ×3 (06:24→21:18)
[2018-09-07] MEDS: GABAPENTIN 100 MG CAPSULE (FP) PO SCH ×4 (06:24→21:18)
[2018-09-07] MEDS: NICOTINE 14 MG/24 HOURS TOPICAL PATCH TD SCH (09:50)
[2018-09-07] MEDS: ARIPiprazole 5 MG TABLET (FP) PO SCH (09:50)
[2018-09-07] MEDS: PRENATAL VITAMINS W/ FOLIC ACID TABLET (FP) PO SCH (09:50)
[2018-09-07] MEDS: valACYclovir HCL 500 MG TABLET (FP) PO SCH ×2 (09:50→21:18)
[2018-09-07] MEDS: CALCIUM 250MG/VIT-D 125 UNITS 1 COMBO TABLET PO SCH ×2 (09:50→21:19)
[2018-09-07] MEDS: LIDOCAINE 5% TOPICAL PATCH TP SCH (09:51)
--- NOTE | 2018-09-07 12:22 | PN ---
S Progress Note Note: Pt requesting to restart suboxone again. C/o anxiety and desire to take suboxone. Pt was detoxed here a few days ago from alcohol and suboxone. Pt reports she is with [facility] and wants suboxone treatment. Spoke to Radha Marlo RE: pt's treatment. As per patient and confirmed by provider,pt was not compliant with medication treatment while at [facility]. Ms Artis will come to speak to patient and her counselor on Rehab about appropriate recommended treatment suggestion, for example [facility]. Pt is alert o x 3. Vital Signs - 24 hr 09/06/18 09/07/18 09/07/18 13:56 00:30 03:30 Temperature 97.7 F Pulse Rate 91 H Respiratory 18 18 18 Rate Blood Pressure 108/72 09/07/18 07:33 Temperature Pulse Rate Respiratory 18 Rate Blood Pressure NAD Plan:will give suboxone 2 mg/0.5mg sl once today for w/s.
[2018-09-07] MEDS ORDERED: BUPRENORPHINE/NALOXONE 2 MG/0.5 MG FILM PACKET SL ONE (12:40)
[2018-09-07] MEDS: IBUPROFEN 400 MG TABLET (FP) PO PRN (12:47)
--- NOTE | 2018-09-07 14:40 | PN ---
Psychiatric Progress Note Vital Signs: Vital Signs Period Temp Pulse Resp BP Sys/Dumont Pulse Ox Last 24 Hr 18-18 Date of Session: 09/07/18 Chief Complaint:: Rafa not sleeping and still having mood swings. HPI: Patient addressed Alcohol,Cocaine and Opioid dependence comorbid with Substance induced mood disorder. Current Medications: Active Medications Generic Name Dose Route Start Last Admin Trade Name Freq PRN Reason Stop Dose Admin Acetaminophen 650 mg 09/05/18 13:09 09/06/18 21:31 Tylenol - PO 650 mg Q4H PRN Administration FEVER Al Hydroxide/Mg Hydroxide 30 ml 09/05/18 13:09 Mylanta Oral Suspension - PO Q6H PRN DYSPEPSIA Aripiprazole 10 mg 09/06/18 10:00 09/07/18 09:50 Abilify PO 10 mg DAILY ELIZABETH Administration Calcium/Vitamin D 1 tab 09/05/18 22:00 09/07/18 09:50 Oscal 250 Mg+D - PO 1 tab BID ELIZABETH Administration Docusate Sodium 100 mg 09/05/18 14:00 09/07/18 13:35 Colace - PO 100 mg TID ELIZABETH Administration Eucalyptus/Menthol/Phenol/Sorbitol 1 each 09/05/18 13:09 Cepastat Lozenge - MM Q4H PRN SORE THROAT Guaifenesin 10 ml 09/05/18 13:09 Robitussin Dm - PO Q6H PRN COUGH Ibuprofen 400 mg 09/05/18 13:09 09/07/18 12:47 Motrin - PO 400 mg Q6H PRN Administration Pain Level 4-6 Lidocaine 1 patch 09/05/18 14:00 09/07/18 09:51 Lidoderm Patch - TP 1 patch DAILY ELIZABETH Administration Loperamide HCl 4 mg 09/05/18 13:09 Imodium - PO Q6H PRN DIARRHEA Magnesium Citrate 300 ml 09/05/18 13:09 Citroma - PO Q48H PRN CONSTIPATION Magnesium Hydroxide 30 ml 09/05/18 13:09 Milk Of Magnesia - PO DAILY PRN CONSTIPATION Melatonin 5 mg 09/05/18 22:00 Melatonin PO HS PRN INSOMNIA Miscellaneous 1 each 09/05/18 22:00 09/06/18 21:30 Lidoderm Patch Removal MC 1 each DAILY@2200 ELIZABETH Administration Nicotine 14 mg 09/06/18 10:00 09/07/18 09:50 Nicoderm Patch - TD Not Given DAILY ELIZABETH Nicotine Polacrilex 2 mg 09/05/18 13:09 09/07/18 13:34 Nicorette Gum - BUC 2 mg Q2H PRN Administration NICOTINE REPLACEMENT RX Multivit/Folic Acid/Iron 1 tab 09/06/18 10:00 09/07/18 09:50 Vitamins (Sjr) - PO 1 tab DAILY ELIZABETH Administration Pseudoephedrine/Triprolidine 1 combo 09/05/18 13:09 Actifed - PO TID PRN NASAL CONGESTION Thiamine HCl 100 mg 09/05/18 22:00 09/06/18 21:30 Vitamin B1 - PO 100 mg HS ELIZABETH Administration Valacyclovir HCl 500 mg 09/05/18 22:00 09/07/18 09:50 Valtrex - PO 09/12/18 10:01 500 mg BID ELIZABETH Administration Current Side Effect: No Lab tests ordered: No Lab tests reviewed: Yes Provider note:: Chart was revuewed,patient was seen in my office.She addressed ongoing sleeping difficulties along with mood instability.Current medications has been discussed with the patient .Properties of Trazodone and neurontin has been discussed including side effects,benefits and dose adjustment.Neurontin 100 mg po tid will be adjust to 200 mg po tid,Trazodone 100 mg po hs will be adjust to 150 mg po hs. Supportive therapy provided. Mental Status Exam - Mental Status Exam Alert and Oriented to: Time, Place, Person Cognitive Function: Grossly Intact Patient Appearance: Unkempt Mood: Anxious, Irritable Affect: Labile Patient Behavior: Cooperative Speech Pattern: Clear Voice Loudness: Normal Thought Process: Goal Oriented Thought Disorder: Not Present Hallucinations: Denies Suicidal Ideation: Denies Homicidal Ideation: Denies Insight/Judgement: Fair Sleep: Difficulty falling asleep Appetite: Good Muscle strength/Tone: Normal Gait/Station: Normal Psychiatric Treatment Plan - Problem List (1) Alcohol dependence Current Visit: Yes Qualifiers: Substance use status: uncomplicated Qualified Code(s): F10.20 - Alcohol dependence, uncomplicated (2) Bipolar disorder Current Visit: Yes Qualifiers: Current episode severity: unspecified Comment: By history. On medications. (3) Cocaine dependence Current Visit: Yes Qualifiers: Substance use status: uncomplicated Qualified Code(s): F14.20 - Cocaine dependence, uncomplicated (4) Nicotine dependence Current Visit: Yes Qualifiers: Nicotine product type: cigarettes Substance use status: in withdrawal Qualified Code(s): F17.213 - Nicotine dependence, cigarettes, with withdrawal Comment: counseled cessation - not ready (5) Opioid dependence on agonist therapy Current Visit: Yes (6) Substance induced mood disorder Current Visit: Yes (7) Cervical muscle strain Current Visit: Yes
--- NOTE | 2018-09-07 16:30 | PN ---
[facility] Progress Note Note: Discussed with Sherri, Director and Joan, counselor at [facility] - patient is recommended to methadone program as did poorly with suboxone. I met with patient who understands and agrees - was on a program in the past in [place] 150mg. Patient asked me to let her psychiatrist know she was in rehab - Dr Rangel in [place] program [phone].
[2018-09-07] MEDS: hydrOXYzine PAMOATE 50 MG CAPSULE (FP) PO PRN (16:52)
[2018-09-07] MEDS: THIAMINE HCL 100 MG TABLET (FP) PO SCH (21:16)
[2018-09-07] MEDS: LIDOCAINE PATCH REMOVAL MC SCH (21:20)
[2018-09-07] MEDS ORDERED: traZODone HCL 50 MG TABLET (FP) PO SCH (22:00)
[2018-09-08] MEDS: DOCUSATE SODIUM 100 MG CAPSULE (FP) PO SCH (06:11)
[2018-09-08] MEDS: GABAPENTIN 100 MG CAPSULE (FP) PO SCH (06:12)
[2018-09-08] MEDS: hydrOXYzine PAMOATE 50 MG CAPSULE (FP) PO PRN ×2 (06:32→12:05)
[2018-09-08 07:09] VITALS: BP 117/80; PULSE 78; TEMP 98
[2018-09-08] MEDS: NICOTINE 14 MG/24 HOURS TOPICAL PATCH TD SCH (09:55)
[2018-09-08] MEDS: CALCIUM 250MG/VIT-D 125 UNITS 1 COMBO TABLET PO SCH (09:58)
[2018-09-08] MEDS: ARIPiprazole 5 MG TABLET (FP) PO SCH (09:58)
[2018-09-08] MEDS: valACYclovir HCL 500 MG TABLET (FP) PO SCH (09:58)
[2018-09-08] MEDS: LIDOCAINE 5% TOPICAL PATCH TP SCH (09:58)
[2018-09-08] MEDS: PRENATAL VITAMINS W/ FOLIC ACID TABLET (FP) PO SCH (09:59)
[2018-09-08] MEDS: IBUPROFEN 400 MG TABLET (FP) PO PRN (12:04)
--- NOTE | 2018-09-08 13:54 | PN ---
[facility] Progress Note Note: TELEPHONE CALLED BY NURSE PAVEL TO REPORT THAT PT DECLINED TO CONTINUE WITH TREATMENT. ATTENDED AND SAW PATIENT STANDING AT THE NURSING STATION ALL DRESSED WITH HER PROPERTY READY TO LEAVE. PT WAS COUNSELLED AND SPOKEN TO BY MS GENEVIEVE MANNING AND HER COUNSELOR TED RE: OPTIONS FOR MAINTENANCE TREATMENT. PT INSISTS SHE IS LEAVING TODAY PREMATURELY. PER COUNSELOR MS JEAN, PT WILL FOLLOW UP AT [facility] TOMORROW FOR AFTERCARE APPOINTMENT/ TREATMENT. PT HAS PRIMARY CARE FOR PSYCH AND MEDICAL AT [facility]. PT IS ALERT O X 3. PT REPORTS SHE HAS ALL HER MEDICATIONS IN HER PROPERTY. NARCAN 4MG/0.1 ML SPRAY SENT ELECTRONICALLY TO [facility] FOR WELDING MANAGER ON EXITING BUILDING. Vital Signs 09/08/18 07:08 Temperature 98.0 F Pulse Rate 78 Respiratory 20 Rate Blood Pressure 117/80 NAD PLAN:FOLLOW AT [facility] TOMORROW SCHEDULED FOLLOW UP AT [facility] FOR MEDICAL/PSYCH MANAGEMENT NEEDED.
== END 2018-09-08 13:45 | disposition left against medical advice (07) | DRG 433 ==
LOC: YASAS 11:37 → Y3E 11:38
PROVIDERS: ADMIT Psychiatry & Neurology Psychiatry; ATTEND Psychiatry & Neurology Psychiatry
PROC: HZ42ZZZ Group Counseling for Substance Abuse Treatment, Cognitive-Behavioral (ICD-10-PCS; principal; 2018-09-05)
DX: F10.20 Alcohol dependence, uncomplicated (principal); B18.2 Chronic viral hepatitis C; F11.20 Opioid dependence, uncomplicated; F14.20 Cocaine dependence, uncomplicated; F17.213 Nicotine dependence, cigarettes, with withdrawal; F19.24 Other psychoactive substance dependence with psychoactive substance-induced mood disorder; F31.9 Bipolar disorder, unspecified; J45.909 Unspecified asthma, uncomplicated; K21.9 Gastro-esophageal reflux disease without esophagitis; E03.9 Hypothyroidism, unspecified; Z87.42 Personal history of other diseases of the female genital tract; Z90.710 Acquired absence of both cervix and uterus; Z98.84 Bariatric surgery status; Z85.3 Personal history of malignant neoplasm of breast; Z91.19 Patient's noncompliance with other medical treatment and regimen; Z86.69 Personal history of other diseases of the nervous system and sense organs

== ENCOUNTER 2022-01-24 16:02 | Emergency (ER) | payer OTHER ==
[2022-01-24 16:26] VITALS: BP 125/92; PULSE 79; BMI 42.7
[2022-01-24] MEDS ORDERED: AMOX TR/POT CLAV 500MG/125MG TABLETS (FP) ONE (18:04)
[2022-01-24] MEDS ORDERED: AMOX TR/POT CLAV 500MG/125MG TABLETS (FP) PO ONE (18:04)
[2022-01-24] MEDS ORDERED: ACETAMINOPHEN 500 MG TABLET (FP) PO ONE (18:04)
[2022-01-24] MEDS ORDERED: KETOROLAC TROMETHAMINE 30 MG/1 ML VIAL IM ONE (18:04)
[2022-01-24] MEDS ORDERED: KETOROLAC TROMETHAMINE 30 MG/1 ML VIAL ONE (18:04)
[2022-01-24] MEDS ORDERED: ACETAMINOPHEN 500 MG TABLET (FP) ONE (18:05)
== END 2022-01-24 18:41 | disposition home or self-care (01) ==
LOC: JERFT 16:02 → JER 16:02 → JERFT 18:41
PROC: 3E023GC Introduction of Other Therapeutic Substance into Muscle, Percutaneous Approach (ICD-10-PCS; principal; 2022-01-24)
DX: K02.9 Dental caries, unspecified (principal)
CPT/HCPCS: 99284-25